=== PATIENT | female | born 1980 | race Caucasian/White ===

== ENCOUNTER 2017-11-11 11:52 | Inpatient (IN) | payer BC, OTHER ==
[2017-11-11] MEDS ORDERED: LORazepam INJ* 2 MG/ML 1 ML VIAL IV ONE (14:14)
[2017-11-11 14:35] LABS: ABS Basophils 0.1 10^3/ul (0-0.2); ABS Eosinophils 0.1 10^3/ul (0-0.6); ABS Lymphocytes 1.4 10^3/ul (1.0-4.8); ABS Monocytes 0.2 10^3/ul (0-0.8); ABS Neutrophils 2.2 10^3/ul (1.5-7.7); ABS Nucleated RBC 0 10^3/ul; Eosinophil % 3.4 % (0-6); Hematocrit 38 % (35-47); Hemoglobin 12.3 g/dl (12.0-16.0); Lymphocyte % 33.4 % (25-47); Mean Corpuscular HGB Conc 33 g/dl (31-36); Mean Corpuscular Hemoglobin 27 pg (27-31); Mean Corpuscular Volume 84 fL (80-97); Mean Platelet Volume 6 um3 (7.4-10.4); Nucleated Red Blood Cells % 0.2; Platelet Count 360 10^3/ul (150-450); Red Blood Count 4.51 10^6/ul (4.0-5.4); Red Cell Distribution Width 19 % (10.5-15)
[2017-11-11 14:59] LABS: EGFR Non-African American 100.2 (>60)
[2017-11-11 15:06] LABS: Urine Appearance Clear; Urine Blood Negative (Negative); Urine Color Colorless; Urine Ketones Negative (Negative); Urine Protein Negative (Negative); Urine Urobilinogen Negative (Negative)
[2017-11-11] MEDS ORDERED: Thiamine IV 100 MG, Folic Acid IV* 1 MG, Multiple Vitamin IV ADULT* 10 ML in D5NS 0.9% ... IV ONE (17:41)
[2017-11-11] MEDS ORDERED: Ondansetron INJ* 2 MG/ML VIAL IV PRN (17:41)
[2017-11-11] MEDS ORDERED: NS 0.9% 1000 ML* 1,000 ML IV SCH (18:00)
[2017-11-11] MEDS: LORazepam TAB(*) 1 MG PO SCH ×2 (21:06→23:29)
[2017-11-11] MEDS: Acetaminophen TAB* 325 MG PO PRN (21:06)
--- NOTE | 2017-11-11 23:44 | HP ---
CC: Dr. Bernard * HISTORY AND PHYSICAL: DATE OF ADMISSION: 11/11/17 PRIMARY CARE PROVIDER: Dr. Bernard. ATTENDING PHYSICIAN WHILE IN THE HOSPITAL: Dr. Bernadette Renner * (report dictated by Filippo Campbell NP). CHIEF COMPLAINT: Alcoholism. HISTORY OF PRESENT ILLNESS: Ms. Reveles is a 37-year-old female patient, who has a history of anxiety and alcohol abuse. She comes in today, says that for last year, she has been drinking on a daily basis. She has tried weaning herself off several times and she gets anxious when she does this. She starts having signs of withdrawal. She noticed that her heart rate becomes very fast, and she becomes anxious. She gets shakes. She gets sweating. She has tried several times to come off the alcohol, and she says that she has tried to do this on her own because she does not want to have to get into a program and essentially she says she does want to try to do it on her own. She now realized that she needs help and particularly to help manage the withdrawal. She denies ever having a seizure. She says she has not been having any vomiting or diarrhea. There have been no bloody stools or bloody vomiting. She denied any pain. Currently, she says she does feel palpitations. She feels anxious and she does state that she is having a mild tremor. Because of the early signs of withdrawal, we were asked to evaluate for admission. PAST MEDICAL HISTORY: Significant for: 1. Anxiety. 2. Alcoholism. PAST SURGICAL HISTORY: Denied. MEDICATIONS: Home medications include Zoloft 50 mg p.o. daily. ALLERGIES TO MEDICATIONS: Include no known drug allergies. FAMILY HISTORY: Mother had a history of AAA. Father of multiple myeloma. SOCIAL HISTORY: She does not smoke. She denies any other recreational drugs. She does admit to having drinking 5 to 10, either wine or mixed vodka drinks a day. Surrogate decision maker is her . REVIEW OF SYSTEMS: There is no documented fever. She denied having any significant weight change. There was no double vision. She denies having any ear discharge. There is no rhinorrhea. No sore throat. No thyroid enlargement. Denies having any chest pain. There is no orthopnea, nocturnal dyspnea. Denies having any abdominal pain. There is no nausea, no vomiting. No dysuria , no frequency. No seizure, no loss of consciousness. No pruritus, and no skin ulceration. Review of 14 systems completed, all others negative. PHYSICAL EXAMINATION GENERAL: At this time, Ms. Reveles is a 37-year-old female patient, she is sitting in the ED stretcher. She does not appear to be in any acute respiratory distress. VITAL SIGNS: Blood pressure 123/75, pulse 98, respirations 17, O2 sat 93%, temperature 98.1. When I evaluated her, her heart rate was right around 110. HEENT: Head: Atraumatic, normocephalic. Eyes: EOMs intact. Sclerae anicteric and not pale. Throat: Oral mucosa appears to be moist. No oropharyngeal erythema. NECK: Supple. LUNGS: Clear to auscultation bilaterally. No wheezes, rales, or rhonchi. HEART: Sounds S1 and S2. She is tachycardic. ABDOMEN: Soft, flat, nontender. Bowel sounds are present. EXTREMITIES: Pulses were 2+ throughout. She is moving all 4 extremities with 5 /5 strength. NEUROLOGIC: The patient is awake, alert, and oriented x3. Tongue midline. Internet Database Specialist equal. No gross focal deficits. SKIN: Grossly intact. DIAGNOSTIC STUDIES/LAB DATA: WBC of 4.0, RBC of 4.51, hemoglobin 12.3, hematocrit 38, platelet count 360. Sodium is 141, potassium 4.0, chloride 107, bicarb 28, BUN 4, creatinine 0.66, glucose 107, calcium 9.2. Total bili 0.3, AST 54, ALT 38, alk phos 64. Albumin of 4.6. TSH of 0.60. Urine was obtained , it was negative. Toxicology was negative with the exception alcohol was 399. She had an EKG obtained today as well, which revealed sinus tachycardia, rate of 114. No ST elevations or T-wave inversions were noted. Old medical records were reviewed. ASSESSMENT AND PLAN: Ms. Reveles is a 37-year-old female patient coming into the ED today with complaints of alcoholism with interest of quitting and showing no signs of withdrawal. She will be admitted under observation status for: 1. Ethanol abuse with early signs of withdrawal. At this point, I will go ahead and put her on the WAM protocol, we will put her on a taper as well, we will give her a banana bag. In addition to this, put on thiamine and multivitamin and folic acid. We will continue to follow her closely. We will hydrate her. I will also place Social Work consult as well as she will need outpatient management. 2. Anxiety. Continue her Zoloft and supportive care. 3. DVT prophylaxis. SCDs have been ordered. 4. Code status. Full code. 5. Fluids, electrolytes, and nutrition. She can have a regular diet. TIME SPENT: On the admission was 60 minutes, greater than half the time was spent [id number] with the patient obtaining my history and physical; other half the time was spent going over the plan of care with the patient and implementing plan of care. I did discuss the plan of care with my attending, Dr. Renner; she is in agreement. FILIPPO CAMPBELL, ADIEL [id number]/[facility] #: [id number] MAKENZIE
[2017-11-12] MEDS: LORazepam TAB(*) 1 MG PO SCH ×7 (01:18→23:30)
[2017-11-12 06:50] LABS: ABS Basophils 0.1 10^3/ul (0-0.2); ABS Eosinophils 0.2 10^3/ul (0-0.6); ABS Lymphocytes 1.1 10^3/ul (1.0-4.8); ABS Monocytes 0.3 10^3/ul (0-0.8); ABS Neutrophils 1.9 10^3/ul (1.5-7.7); ABS Nucleated RBC 0 10^3/ul; Eosinophil % 4.9 % (0-6); Hematocrit 36 % (35-47); Hemoglobin 11.7 g/dl (12.0-16.0); Lymphocyte % 32.1 % (25-47); Mean Corpuscular HGB Conc 33 g/dl (31-36); Mean Corpuscular Hemoglobin 28 pg (27-31); Mean Corpuscular Volume 84 fL (80-97); Mean Platelet Volume 7 um3 (7.4-10.4); Nucleated Red Blood Cells % 0.1; Platelet Count 273 10^3/ul (150-450); Red Blood Count 4.25 10^6/ul (4.0-5.4); Red Cell Distribution Width 18 % (10.5-15); White Blood Count 3.5 10^3/ul (3.5-10.8)
[2017-11-12 07:04] LABS: EGFR Non-African American 116.3 (>60)
[2017-11-12] MEDS ORDERED: Potassium Chlor TAB* 20 MEQ TAB.ER PO ONE (07:49)
--- NOTE | 2017-11-12 07:54 | PN ---
Subjective Date of Service: 11/12/17 Interval History: py feels tremulous, otherwise no complaints. Denies hallucinations, never had withdrawal seizures Objective Active Medications: Acetaminophen (Tylenol Tab*) 650 mg PO Q4H PRN PRN Reason: PAIN Last Admin: 11/11/17 21:06 Dose: 650 mg Folic Acid (Folvite Tab*) 1 mg PO DAILY [facility] Hydralazine HCl (Apresoline Iv*) 5 mg IV SLOW PU Q6H PRN PRN Reason: BLOOD PRESSURE Lorazepam (Ativan Tab(*)) 0 - 6 mg PO .PER [facility] PROTOCOL [facility] PRN Reason: Protocol Last Admin: 11/12/17 05:50 Dose: 2 mg Multivitamins/Minerals (Theragran/Minerals Tab*) 1 tab PO DAILY [facility] Ondansetron HCl (Zofran Inj*) 4 mg IV Q6H PRN PRN Reason: NAUSEA Potassium Chloride (Klor Con Er Tab*) 40 meq PO ONCE ONE Stop: 11/12/17 07:50 Sertraline HCl (Zoloft*) 50 mg PO DAILY [facility] Thiamine HCl (Vitamin B-1 Tab*) 100 mg PO DAILY [facility] Vital Signs - 8 hr 11/12/17 11/12/17 11/12/17 01:00 01:05 01:12 Temperature 97.9 F Pulse Rate 156 130 Respiratory 16 18 Rate Blood Pressure 157/99 (mmHg) O2 Sat by Pulse 100 Oximetry 11/12/17 11/12/17 11/12/17 01:18 03:00 03:37 Temperature 98.9 F Pulse Rate 116 Respiratory 18 18 18 Rate Blood Pressure 158/110 (mmHg) O2 Sat by Pulse 100 Oximetry 11/12/17 11/12/17 11/12/17 03:41 04:41 05:44 Temperature 98.2 F Pulse Rate 143 Respiratory 18 18 18 Rate Blood Pressure 180/113 (mmHg) O2 Sat by Pulse 100 Oximetry 11/12/17 11/12/17 11/12/17 05:50 06:31 07:25 Temperature 98.1 F Pulse Rate 108 Respiratory 14 16 18 Rate Blood Pressure 179/111 (mmHg) O2 Sat by Pulse 100 Oximetry 11/12/17 11/12/17 07:29 07:30 Temperature Pulse Rate 112 Respiratory 17 Rate Blood Pressure 172/102 (mmHg) O2 Sat by Pulse Oximetry Oxygen Devices in Use Now: None Appearance: 37 yo F in nAd, AAOx3 Eyes: No Scleral Icterus, PERRLA Ears/Nose/Mouth/Throat: NL Teeth, Lips, Gums, Mucous Membranes Moist Neck: NL Appearance and Movements; NL JVP, Trachea Midline Respiratory: Symmetrical Chest Expansion and Respiratory Effort, Clear to Auscultation Cardiovascular: NL Sounds; No Murmurs; No JVD, RRR Abdominal: NL Sounds; No Tenderness; No Distention, No Hepatosplenomegaly Lymphatic: No Cervical Adenopathy Extremities: No Edema, No Clubbing, Cyanosis Skin: No Rash or Ulcers, No Nodules or Sclerosis Neurological: Alert and Oriented x 3, NL Muscle Strength and Tone, - - mild UE tremors noted Result Diagrams: 11/12/17 06:25 11/12/17 06:26 Assess/Plan/Problems-Billing Assessment: 37 yo F with h/o anxiety , drinking ETOH excessively x 1 year presented for ETOH withdrawal - Patient Problems (1) Alcohol withdrawal Comment: Acute, now with tremors and HTN cont WAM, thamine and folate SW to see (2) HTN (hypertension) Comment: due to withdrawal started hydralazine (3) Depression Comment: cont Zoloft (4) DVT prophylaxis Comment: low risk , ambulation Status and Disposition: OBV changed to inpatient, still has symptoms of withdrawal
[2017-11-12] MEDS: Multivitamins/Minerals TAB PO SCH (08:23)
[2017-11-12] MEDS: hydrALAZINE IV* 20 MG/ML VIAL IV SLOW PU PRN ×2 (08:24→18:04)
[2017-11-12] MEDS: Sertraline* 50 MG TAB PO SCH (08:25)
[2017-11-12] MEDS: Thiamine TAB* 100 MG TAB PO SCH (08:25)
[2017-11-12] MEDS: Folic Acid TAB* 1 MG PO SCH (08:25)
[2017-11-13 06:17] LABS: EGFR Non-African American 95.2 (>60)
[2017-11-13] MEDS: Multivitamins/Minerals TAB PO SCH (09:24)
[2017-11-13] MEDS: Sertraline* 50 MG TAB PO SCH (09:24)
[2017-11-13] MEDS: Thiamine TAB* 100 MG TAB PO SCH (09:24)
[2017-11-13] MEDS: cloNIDine TAB* 0.1 MG PO SCH ×2 (09:24→21:34)
[2017-11-13] MEDS: Folic Acid TAB* 1 MG PO SCH (09:24)
--- NOTE | 2017-11-13 10:15 | PN ---
Subjective Date of Service: 11/13/17 Interval History: Pt is still tachycardic and hypertensive, but minimally "shaky", denies hallucinations. Objective Active Medications: Acetaminophen (Tylenol Tab*) 650 mg PO Q4H PRN PRN Reason: PAIN Last Admin: 11/11/17 21:06 Dose: 650 mg Clonidine HCl (Catapres Tab*) 0.1 mg PO BID [facility] Last Admin: 11/13/17 09:24 Dose: 0.1 mg Folic Acid (Folvite Tab*) 1 mg PO DAILY [facility] Last Admin: 11/13/17 09:24 Dose: 1 mg Hydralazine HCl (Apresoline Iv*) 5 mg IV SLOW PU Q6H PRN PRN Reason: BLOOD PRESSURE Last Admin: 11/12/17 18:04 Dose: 5 mg Lorazepam (Ativan Tab(*)) 0 - 6 mg PO .PER [facility] PROTOCOL [facility] PRN Reason: Protocol Last Admin: 11/12/17 23:30 Dose: 2 mg Multivitamins/Minerals (Theragran/Minerals Tab*) 1 tab PO DAILY [facility] Last Admin: 11/13/17 09:24 Dose: 1 tab Ondansetron HCl (Zofran Inj*) 4 mg IV Q6H PRN PRN Reason: NAUSEA Sertraline HCl (Zoloft*) 50 mg PO DAILY [facility] Last Admin: 11/13/17 09:24 Dose: 50 mg Thiamine HCl (Vitamin B-1 Tab*) 100 mg PO DAILY [facility] Last Admin: 11/13/17 09:24 Dose: 100 mg Vital Signs - 8 hr 11/13/17 11/13/17 11/13/17 03:19 05:06 06:04 Temperature 98.2 F Pulse Rate 118 109 Respiratory 16 16 20 Rate Blood Pressure 160/108 165/109 (mmHg) O2 Sat by Pulse 100 100 Oximetry 11/13/17 11/13/17 07:57 09:12 Temperature 98.6 F 98.5 F Pulse Rate 132 113 Respiratory 18 18 Rate Blood Pressure 160/97 158/109 (mmHg) O2 Sat by Pulse 99 100 Oximetry Oxygen Devices in Use Now: None Appearance: 37 yo f in nAD, AAOx3 Eyes: No Scleral Icterus, PERRLA Ears/Nose/Mouth/Throat: NL Teeth, Lips, Gums, Mucous Membranes Moist Neck: NL Appearance and Movements; NL JVP, Trachea Midline Respiratory: Symmetrical Chest Expansion and Respiratory Effort, Clear to Auscultation Cardiovascular: NL Sounds; No Murmurs; No JVD, RRR Abdominal: NL Sounds; No Tenderness; No Distention Lymphatic: No Cervical Adenopathy Extremities: No Edema, No Clubbing, Cyanosis Skin: No Rash or Ulcers, No Nodules or Sclerosis Neurological: Alert and Oriented x 3, - - minimal tremors in b/l UE Result Diagrams: 11/12/17 06:25 11/13/17 05:43 Assess/Plan/Problems-Billing Assessment: 37 yo F with h/o anxiety , drinking ETOH excessively x 1 year presented for ETOH withdrawal - Patient Problems (1) Alcohol withdrawal Comment: Acute, still with tremors and HTN cont WAM, thiamine and folate. Started Clonidine BID for HTN and tachycardia. Will also check Echo to r/o ETOH related cardiomyopathy SW following (2) HTN (hypertension) Comment: due to withdrawal started clonidine, cont hydralazine prn (3) Depression Comment: cont Zoloft (4) DVT prophylaxis Comment: low risk , ambulation Status and Disposition: inpatient
[2017-11-13] MEDS: Acetaminophen TAB* 325 MG PO PRN (15:21)
--- NOTE | 2017-11-13 15:52 | ECHO ---
Patient: ROBERT VALERO [facility] Rec#: [id number] : 1980 Date: 11/13/2017 Age: 37y Height: 170.18 cm / 67.0 in Weight: 73.48 kg / 161.9 lbs Sex: F BSA: 1.85 Room#: 407 Admit Date#: 11/12/2017 Type: Inpatient Referring: Trish Bradshaw MD Reading: Zachary Lala MD Plate Finisher: Cynthia Marie RD,RDMS Transthoracic Echocardiogram Indication: Abnormal EKG BP: 162/114 HR: 103 Rhythm: Tachycardia Findings History: ETOH Technical Comments: The study quality is good. Left Ventricle: The left ventricular chamber size is normal. The estimated ejection fraction is 55-60%. Normal left ventricular diastolic filling is observed. Left Atrium: The left atrial chamber size is normal. Right Ventricle: The right ventricular chamber size and systolic function are within normal limits. Right Atrium: The right atrial cavity size is normal. Aortic Valve: The aortic valve is trileaflet. Systolic excursion of the aortic valve is normal. There is no evidence of aortic regurgitation. There is no evidence of aortic stenosis. Mitral Valve: The mitral valve leaflets are mildly thickened. There is a trace of mitral regurgitation. There is no evidence of mitral stenosis. Tricuspid Valve: The tricuspid valve leaflets are normal. There is trace tricuspid regurgitation. No pulmonary hypertension is noted. Pulmonic Valve: The pulmonic valve structure is not well visualized. There is no evidence of pulmonic regurgitation. Pericardium: There is no significant pericardial effusion. Aorta: The aortic root appears normal. There is no dilatation of the aortic arch. Pulmonary Artery: The main pulmonary artery is not well visualized. Venous: The inferior vena cava appears normal in size. There is a greater than 50% respiratory change in the inferior vena cava dimension. Summary: There was not any prior study for comparison. Conclusions The estimated ejection fraction is 55-60%. There is a trace of mitral regurgitation. There is trace tricuspid regurgitation. Measurements Name Value Normal Range RVIDd (AP) 2D 2 cm (0.9 - 2.6) RVDdMajor (2D) 1.7 cm (2.2 - 4.4) RAd ISD 4CH 4.1 cm (3.4 - 4.9) RA (A4C)W 3.3 cm (2.9 - 4.6) IVSd (2D) 1.1 cm (0.6 - 1) LVPWd (2D) 1 cm (0.6 - 1) LVIDd (2D) 4.4 cm (3.6 - 5.4) LVIDs (2D) 2.8 cm - LV FS (2D) 36 % (25 - 45) Aortic Annulus 2 cm (1.4 - 2.6) Ao root diameter (2D) 2.8 cm (2.1 - 3.5) Ascending Ao 2.9 cm (2.1 - 3.4) Aortic arch 2.8 cm (1.8 - 3.4) LA dimension (AP) 2D 3.2 cm (2.3 - 3.8) LAd ISD 4CH 4.7 cm (2.9 - 5.3) LA ISD 4CH W 3.5 cm (2.5 - 4.5) Name Value Normal Range LA ESV SP 4CH (A/L) 41.06 ml - LA ESV SP 2CH (A/L) 40.39 ml - LA ESV BP (A/L) 41.45 ml - LA ESV BP (A/L) index 22 ml/m2 - LA ESV SP 4CH (MOD) 38.56 ml - LA ESV SP 2CH (MOD) 36.76 ml - Name Value Normal Range MV E-wave Vmax 0.5 m/sec - MV deceleration time 105 msec - MV A-wave Vmax 0.8 m/sec - MV E:A ratio 0.6 ratio - LV lateral e' Vmax 0.07 m/sec - LV E:e' lateral ratio 7 ratio - Name Value Normal Range AV Vmax 1.2 m/sec - AV VTI 20 cm - AV peak gradient 6 mmHg - AV mean gradient 3.4 mmHg - LVOT Vmax 1 m/sec - LVOT VTI 16 cm - LVOT peak gradient 4 mmHg - LVOT mean gradient 2.2 mmHg - OSBALDO Vmax 0.8 m/sec - Name Value Normal Range TR Vmax 1.8 m/sec - TR peak gradient 13 mmHg - RAP 3 mmHg - RVSP 16 mmHg - IVC diameter 2.1 cm - Name Value Normal Range PV Vmax 0.8 m/sec - PV peak gradient 2.6 mmHg -
[2017-11-13] MEDS: LORazepam TAB(*) 1 MG PO SCH (23:31)
[2017-11-14] MEDS: Folic Acid TAB* 1 MG PO SCH (08:19)
[2017-11-14] MEDS: Multivitamins/Minerals TAB PO SCH (08:19)
[2017-11-14] MEDS: Thiamine TAB* 100 MG TAB PO SCH (08:19)
[2017-11-14] MEDS: cloNIDine TAB* 0.1 MG PO SCH (08:19)
[2017-11-14] MEDS: Sertraline* 50 MG TAB PO SCH (08:19)
[2017-11-14 09:29] VITALS: BP 149/103
--- NOTE | 2017-11-14 22:15 | DS ---
CC: Dr. Bernard * DISCHARGE SUMMARY: DATE OF ADMISSION: 11/11/17 DATE OF DISCHARGE: 11/14/17 PRIMARY CARE PROVIDER: Dr. Bernard. DISCHARGE DIAGNOSES: 1. Alcohol withdrawal in patient with history of alcoholism. 2. Tachycardia and hypertension likely related to alcohol withdrawal. SECONDARY DIAGNOSES: 1. History of anxiety. 2. History of alcoholism. MEDICATIONS AT DISCHARGE: Include: 1. Multivitamin [id number] daily. 2. Sertraline 50 mg daily. 3. Clonidine 0.1 mg b.i.d. The patient was given 2-week supply. LABORATORY DATA AND STUDIES PERFORMED DURING THE HOSPITAL STAY: Included: On 11/12/17, white blood cell count of 3.5, hemoglobin 11.7, hematocrit of 36, and platelets of 273. On 11/13/17, sodium of 133, potassium 3.9, chloride 101, carbon dioxide 24, BUN 8, creatinine 0.69, magnesium 2. Serum alcohol level on admission was 399. Transthoracic echocardiogram obtained on 11/11/17 showed EF of 55% to 60% with trace mitral regurgitation and trace tricuspid regurgitation. HOSPITALIZATION COURSE: Halima Reveles is a 37-year-old female who stated that she was drinking alcohol excessively for over a year now. She stated that every time she tried to cut down or stopped drinking, she would get severe generalized tremors. She came into the hospital intoxicated and asked to be help with her withdrawal symptoms when she "comes clean." The patient was placed on the [facility] protocol with withdrawal. She was given intravenous hydration. Social work saw the patient in consultation. I recommended outpatient meetings for alcoholics anonymous. He did have a history of depression and anxiety. The patient also was referred to [facility]. By the time of discharge, the patient's withdrawal symptoms were nearly gone. She did not require Ativan doses anymore, although she continues to be tachycardic and hypertensive. Due to her tachycardia, an echocardiogram was obtained, which showed no evidence of cardiomyopathy. I suspect her tachycardia and hypertension is still related to mild withdrawal symptoms. Due to that, the patient was started on clonidine the day prior to discharge with good result and she is going to be discharged on clonidine to go home with. PHYSICAL EXAMINATION AT THE TIME OF DISCHARGE: Blood pressure of 139/88, heart rate of 109 and regular, respiratory rate 16, oxygen saturation 100% on room air , temperature 98.4. General: The patient is a very pleasant 37-year-old female who is in no acute distress. Alert, awake, and oriented x3. HEENT: Head: Atraumatic, normocephalic. Eyes: Pupils are equal, reactive to light and accommodation. Oropharynx clear. Mucosa moist. Neck: Supple. No JVD. No bruits bilaterally. Cardiovascular: Regular rate and rhythm. No murmur. Respiratory: Clear to auscultation bilaterally. Abdomen: Soft, nontender. Bowel sounds are present in all 4 quadrants. Extremities: There is no edema. Pulses +2 bilaterally. No clubbing or cyanosis. On neuro evaluation, speech clear. Cranial nerves II through XII grossly intact. Motor strength is 5/5 bilaterally. Please note that this is a short summary of the patient's hospitalization. Please refer to further medical records for details. TIME SPENT: Approximately 40 minutes was spent on the patient's discharge. [id number]/[facility] #: [id number] MTDD
--- NOTE | 2017-11-15 13:51 | ED ---
Regulo Gayle Gabriel, scribed for Massimo Heller MD on 11/11/17 at 1407 . Substance Abuse/Use - HPI Summary HPI Summary: This patient is a 37 year old F presenting to [facility] accompanied by her requesting EtOh detox. Pts last drink was at 0800 and she drinks 5-8 drinks a day at night. She states she has had a strong addiction for the last year has tried to taper off but has physical withdraws . Patient reports shaking and anxiety. Patient denies SI. - History Of Current Complaint Chief Complaint: EDDetoxRequest Stated Complaint: ALCOHOL DETOX Time Seen by Provider: 11/11/17 12:02 Hx Obtained From: Patient Ingestion History: Type/Name Of Drug - etoh Overdose Characteristics: Oral Timing Of Abuse: Daily Severity Initially: Moderate Severity Currently: Moderate Associated Signs And Symptoms: Tremulous, Other: - anxiety - Allergies/Home Medications Allergies/Adverse Reactions: Allergies Allergy/AdvReac Type Severity Reaction Status Date / Time No Known Allergies Allergy Verified 11/11/17 12:00 PMH/Surg Hx/FS Hx/Imm Hx Endocrine/Hematology History: Denies: Hx Blood Disorders, Hx Blood Transfusions, Hx Bone Marrow Disease Respiratory History: Denies: Hx Asthma, Hx Bronchopulmonary Dysplasia, Hx Chronic Bronchitis History: Denies: Hx Acute Renal Failure, Hx Benign Prostatic Hyperplasia EENT History: Denies: Hx Deafness Neurological History: Denies: Hx CVA Infectious Disease History: No Infectious Disease History: Denies: Traveled Outside the [place] in Last 30 Days - Family History Known Family History: Positive: Other - AAA killed her mother at 34 y/o Negative: Cardiac Disease, Hypertension, Diabetes, Renal Disease, Respiratory Disease, Seizure Disorder - Social History Occupation: Employed Part-time Lives: With Family Alcohol Use: Daily Substance Use Type: Reports: None Smoking Status (MU): Light Every Day Tobacco Smoker Review of Systems Positive: Other - shaking . Negative: Fever, Chills Negative: Erythema Negative: Sore Throat Negative: Chest Pain Negative: Shortness Of Breath, Cough Negative: Abdominal Pain, Vomiting, Nausea Negative: dysuria, hematuria Negative: Myalgia, Edema Negative: Rash Neurological: Negative - dizzines Positive: Anxious All Other Systems Reviewed And Are Negative: Yes Physical Exam - Summary Physical Exam Summary: Constitutional: Well-developed, Well-nourished, Alert. (-) Distressed, tremulous Skin: Warm, Dry HENT: Normocephalic; Atraumatic Eyes: Conjunctiva normal Neck: Musculoskeletal ROM normal neck. (-) JVD, (-) Stridor, (-) Tracheal deviation Cardio: Rhythm regular, rate normal, Heart sounds normal; Intact distal pulses; The pedal pulses are 2+ and symmetric. Radial pulses are 2+ and symmetric. (-) Murmur Pulmonary/Chest wall: Effort normal. (-) Respiratory distress, (-) Wheezes, (-) Rales Abd: Soft, (-) Tenderness, (-) Distension, (-) Guarding, (-) Rebound Musculoskeletal: (-) Edema Lymph: (-) Cervical adenopathy Neuro: Alert, Oriented x3 Psych: Mood and affect Normal Triage Information Reviewed: Yes Vital Signs On Initial Exam: Initial Vitals Temp Pulse Resp BP Pulse Ox 98.4 F 115 20 177/120 96 11/11/17 12:00 11/11/17 12:00 11/11/17 12:00 11/11/17 12:00 11/11/17 12:00 Vital Signs Reviewed: Yes Diagnostics - Vital Signs Vital Signs Temp Pulse Resp BP Pulse Ox 11/11/17 12:00 98.4 F 115 20 177/120 96 - Laboratory Lab Results: Lab Results 11/11/17 11/11/17 11/11/17 Range/Units 14:23 14:23 14:56 WBC 4.0 (3.5-10.8) 10^3/ul RBC 4.51 (4.0-5.4) 10^6/ul Hgb 12.3 (12.0-16.0) g/dl Hct 38 (35-47) % MCV 84 (80-97) fL MCH 27 (27-31) pg MCHC 33 (31-36) g/dl RDW 19 H (10.5-15) % Plt Count 360 (150-450) 10^3/ul MPV 6 L (7.4-10.4) um3 Neut % (Auto) 55.6 (38-83) % Lymph % (Auto) 33.4 (25-47) % [place] % (Auto) 5.8 (0-7) % Eos % (Auto) 3.4 (0-6) % Baso % (Auto) 1.8 (0-2) % Absolute Neuts (auto) 2.2 (1.5-7.7) 10^3/ul Absolute Lymphs (auto) 1.4 (1.0-4.8) 10^3/ul Absolute Monos (auto) 0.2 (0-0.8) 10^3/ul Absolute Eos (auto) 0.1 (0-0.6) 10^3/ul Absolute Basos (auto) 0.1 (0-0.2) 10^3/ul Absolute Nucleated RBC 0 10^3/ul Nucleated RBC % 0.2 Sodium 141 (133-145) mmol/L Potassium 4.0 (3.5-5.0) mmol/L Chloride 107 (101-111) mmol/L Carbon Dioxide 25 (22-32) mmol/L Anion Gap 9 (2-11) mmol/L BUN 4 L (6-24) mg/dL Creatinine 0.66 (0.51-0.95) mg/dL Est GFR ( Amer) 128.9 (>60) Est GFR (Non-Af Amer) 100.2 (>60) BUN/Creatinine Ratio 6.1 L (8-20) Glucose 107 H (70-100) mg/dL Calcium 9.2 (8.6-10.3) mg/dL Total Bilirubin 0.30 (0.2-1.0) mg/dL AST 64 H (13-39) U/L ALT 38 (7-52) U/L Alkaline Phosphatase 64 (34-104) U/L Total Protein 7.6 (6.4-8.9) g/dL Albumin 4.6 (3.2-5.2) g/dL Globulin 3.0 (2-4) g/dL Albumin/Globulin Ratio 1.5 (1-3) TSH 0.60 (0.34-5.60) mcIU/mL Urine Color Urine Appearance Urine pH (5-9) Ur Specific [place] (1.010-1.030) Urine Protein (Negative) Urine Ketones (Negative) Urine Blood (Negative) Urine Nitrate (Negative) Urine Bilirubin (Negative) Urine Urobilinogen (Negative) Ur Leukocyte Esterase (Negative) Urine Glucose (Negative) Salicylates < 2.50 (<30) mg/dL Urine Opiates Screen None detected (None Detect) Acetaminophen < 15 mcg/mL Ur Barbiturates Screen None detected (None Detect) Ur Phencyclidine Scrn None detected (None Detect) Ur Amphetamines Screen None detected (None Detect) U Benzodiazepines Scrn None detected (None Detect) Urine Cocaine Screen None detected (None Detect) U Cannabinoids Screen None detected (None Detect) Serum Alcohol 399 H (<10) mg/dL 11/11/17 11/12/17 11/12/17 Range/Units 14:56 06:25 06:26 WBC 3.5 (3.5-10.8) 10^3/ul RBC 4.25 (4.0-5.4) 10^6/ul Hgb 11.7 L (12.0-16.0) g/dl Hct 36 (35-47) % MCV 84 (80-97) fL MCH 28 (27-31) pg MCHC 33 (31-36) g/dl RDW 18 H (10.5-15) % Plt Count 273 (150-450) 10^3/ul MPV 7 L (7.4-10.4) um3 Neut % (Auto) 52.5 (38-83) % Lymph % (Auto) 32.1 (25-47) % [place] % (Auto) 8.7 H (0-7) % Eos % (Auto) 4.9 (0-6) % Baso % (Auto) 1.8 (0-2) % Absolute Neuts (auto) 1.9 (1.5-7.7) 10^3/ul Absolute Lymphs (auto) 1.1 (1.0-4.8) 10^3/ul Absolute Monos (auto) 0.3 (0-0.8) 10^3/ul Absolute Eos (auto) 0.2 (0-0.6) 10^3/ul Absolute Basos (auto) 0.1 (0-0.2) 10^3/ul Absolute Nucleated RBC 0 10^3/ul Nucleated RBC % 0.1 Sodium 135 (133-145) mmol/L Potassium 3.4 L (3.5-5.0) mmol/L Chloride 101 (101-111) mmol/L Carbon Dioxide 24 (22-32) mmol/L Anion Gap 10 (2-11) mmol/L BUN 4 L (6-24) mg/dL Creatinine 0.58 (0.51-0.95) mg/dL Est GFR ( Amer) 149.6 (>60) Est GFR (Non-Af Amer) 116.3 (>60) BUN/Creatinine Ratio 6.9 L (8-20) Glucose 76 (70-100) mg/dL Calcium 8.4 L (8.6-10.3) mg/dL Total Bilirubin (0.2-1.0) mg/dL AST (13-39) U/L ALT (7-52) U/L Alkaline Phosphatase (34-104) U/L Total Protein (6.4-8.9) g/dL Albumin (3.2-5.2) g/dL Globulin (2-4) g/dL Albumin/Globulin Ratio (1-3) TSH (0.34-5.60) mcIU/mL Urine Color Colorless Urine Appearance Clear Urine pH 7.0 (5-9) Ur Specific [place] 1.000 L (1.010-1.030) Urine Protein Negative (Negative) Urine Ketones Negative (Negative) Urine Blood Negative (Negative) Urine Nitrate Negative (Negative) Urine Bilirubin Negative (Negative) Urine Urobilinogen Negative (Negative) Ur Leukocyte Esterase Negative (Negative) Urine Glucose Negative (Negative) Salicylates (<30) mg/dL Urine Opiates Screen (None Detect) Acetaminophen mcg/mL Ur Barbiturates Screen (None Detect) Ur Phencyclidine Scrn (None Detect) Ur Amphetamines Screen (None Detect) U Benzodiazepines Scrn (None Detect) Urine Cocaine Screen (None Detect) U Cannabinoids Screen (None Detect) Serum Alcohol 43 H (<10) mg/dL Result Diagrams: 11/12/17 06:25 11/13/17 05:43 Lab Statement: Any lab studies that have been ordered have been reviewed, and results considered in the medical decision making process. - EKG 15:04 Cardiac Rate: Tachycardia EKG Rhythm: Sinus Tachycardia - at 114 BPM EKG Interpretation: No STEMI Course/Dx - Course Assessment/Plan: This patient is a 37 year old F presenting to [facility] accompanied by her requesting EtOh detox. Pts last drink was at 0800 and she drinks 5-8 drinks a day at night. She states she has had a strong addiction for the last year has tried to taper off but has physical withdraws . Patient reports shaking and anxiety. Patient denies SI. An EKG reveals sinus tachycardia. Test results with no significant abnormalities except for a serum alcohol of 399. In the ED course the patient was given ativan. We discussed patient care with Dr. Renner and they accepted the patient for admission. Patient will be admitted for alcohol withdrawal and alcohol dependence. The patient is agreeable with this plan. - Diagnoses Provider Diagnoses: Alcohol dependence with withdrawal - Physician Notifications Discussed Care Of Patient With: Bernadette Renner Time Discussed With Above Provider: 15:38 Instructed by Provider To: Admit As Inpatient Discharge - Sign-Out/Discharge Documenting (check all that apply): Discharge - admit - Discharge Plan Condition: Good Disposition: ADMITTED TO [facility] - Billing Disposition and Condition Condition: GOOD Disposition: [facility] [place] The documentation as recorded by the Regulo paiz Gabriel accurately reflects the service I personally performed and the decisions made by , Massimo Heller MD.
== END 2017-11-14 12:45 | disposition home or self-care (01) | DRG 775 ==
LOC: ED 11:52 → MED 17:35 → OBSVTOIN 11-12 07:54
PROVIDERS: ADMIT Internal Medicine; ATTEND Internal Medicine
DX: F10.239 Alcohol dependence with withdrawal, unspecified (principal); F10.229 Alcohol dependence with intoxication, unspecified; F41.9 Anxiety disorder, unspecified; F17.200 Nicotine dependence, unspecified, uncomplicated; I10 Essential (primary) hypertension; R00.0 Tachycardia, unspecified; F32.9 Major depressive disorder, single episode, unspecified; Y90.8 Blood alcohol level of 240 mg/100 ml or more; Z80.7 Family history of other malignant neoplasms of lymphoid, hematopoietic and related tissues; Z82.49 Family history of ischemic heart disease and other diseases of the circulatory system
CPT/HCPCS: 36415; 80048; 80053; 80307; 80320; 80329; 81003; 83735; 84443; 85025; 93005; 93306; 99283; 99406; A9270-GY; G0378; G0480; J0360; J2060; J3411

== ENCOUNTER 2017-12-06 17:48 | Emergency (ER) | payer BC ==
[2017-12-06 17:58] VITALS: BP 151/95
--- NOTE | 2017-12-06 18:34 | UC ---
Billy Gayle Nikita, scribed for Segundo Verdugo MD on 12/06/17 at 1815 . Complaint Female HPI - HPI Summary HPI Summary: This patient is a 37 year old F presenting to [facility] with a chief complaint of UTI symptoms since 1630 yesterday. The patient rates the pain 3/10 in severity. Symptoms aggravated by nothing. Symptoms alleviated by nothing. Patient reports urinary frequency, urgency, and dysuria. The patient reports she has been drinking 2L of water since onset of sx and that her sx are similar to a previous UTI. - History Of Current Complaint Chief Complaint: UCGU Stated Complaint: FREQUENCY/ BURINING W/ URINATION Time Seen by Provider: 12/06/17 18:04 Hx Obtained From: Patient Hx Last Menstrual Period: now Onset/Duration: Sudden Onset, Lasting Days, Still Present Timing: Constant, Lasting Days Severity Initially: Mild Severity Currently: Mild Pain Intensity: 3 Pain Scale Used: 0-10 Numeric Aggravating Factor(s): Nothing Alleviating Factor(s): Nothing - Allergies/Home Medications Allergies/Adverse Reactions: Allergies Allergy/AdvReac Type Severity Reaction Status Date / Time No Known Allergies Allergy Verified 12/06/17 17:59 PMH/Surg Hx/FS Hx/Imm Hx Endocrine History: Other Other Endocrine History: No DM Cardiovascular History: Other Other Cardiovascular History: No CAD, HTN Respiratory History: Other Other Respiratory History: No asthma GI/ History: Other Other GI/ History: cervical dysplasia cryotherapy Psychological History: Anxiety - Surgical History Surgical History: None - Family History Known Family History: Positive: Other - AAA killed her mother at 34 y/o Negative: Cardiac Disease, Hypertension, Diabetes, Renal Disease, Respiratory Disease, Seizure Disorder - Social History Alcohol Use: None Alcohol Amount: 5-7 drinks per day Substance Use Type: Prescribed Substance Use Comment - Amount & Last Used: 11/11/17 @ 1000 Smoking Status (MU): Former Smoker Type: Cigarettes Have You Smoked in the Last Year: Yes - Immunization History Most Recent Influenza Vaccination: never Most Recent Pneumonia Vaccination: never Review of Systems Constitutional: Other - denies fever Genitourinary: Dysuria, Frequency, Urgency All Other Systems Reviewed And Are Negative: Yes Physical Exam - Summary Physical Exam Summary: VITAL SIGNS: Reviewed. GENERAL: ~Patient is a well-developed and nourished FEMALE who is lying comfortable in the stretcher. ~Patient is not in any acute respiratory distress. HEAD AND FACE: Normocephalic EYES: PERRLA, EOMI x 2. EARS: Hearing grossly intact. MOUTH: Oropharynx within normal limits. NECK: Supple, trachea is midline, no adenopathy, no JVD, no carotid bruit. CHEST: Symmetric, no tenderness at palpation LUNGS: Clear to auscultation bilaterally. No wheezing or crackles. CVS: Regular rate and rhythm, S1 and S2 present, no murmurs or gallops appreciated. ABDOMEN: Soft, non-tender. Bowel sounds are normal. No abdominal abnormal pulsations. EXTREMITIES: Full ROM in all major joints, no edema, no cyanosis or clubbing. NEURO: Alert and oriented x 3. No acute neurological deficits. Speech is normal and follows commands. SKIN: Dry and warm Triage Information Reviewed: Yes Vital Signs: Initial Vital Signs Temp 97.5 F 12/06/17 17:55 Pulse 89 12/06/17 17:55 Resp 12 12/06/17 17:55 BP 151/95 12/06/17 17:55 Pulse Ox 100 12/06/17 17:55 Vital Signs Reviewed: Yes Re-Evaluation - Re-Evaluation First Eval Re-Evaluation Time: 18:19 Comment: Discussed lab results and discharge plan with the patient. Complaint Female Dx - Course Course Of Treatment: UA positive for leukocytes in the urine. Therefore she will be treated for a UTI and be placed on Bactrim. We will send the urine for culture. She is instructed to follow up with her PCP. The pt is hemodynamically stable, alert and oriented x3. The patient was found to have increased BP in UC. The patient will follow up with PCP for better control of BP. I discussed all the findings and test results with the patient. Patient was instructed to return to the urgent care or go to ER immediately if any of the symptoms return or worsens. Plan of care was discussed with the patient, and patient understands and agrees. All questions were answered to patient satisfaction. There were no further complaints or concerns. - Differential Dx/Diagnosis Differential Diagnosis/HQI/PQRI: Urinary Tract Infection Provider Diagnoses: Urinary Tract Infection Discharge - Sign-Out/Discharge Documenting (check all that apply): Discharge - Discharge Plan Condition: Stable Disposition: HOME Prescriptions: Sulfamethox/Trimethoprim DS* [Bactrim DS 800/160 TAB*] 1 tab PO BID #14 tab Patient Education Materials: Urinary Tract Infection in Women (ED) Referrals: Naina Bernard MD [Primary Care Provider] - Additional Instructions: FOLLOW UP WITH YOUR PRIMARY CARE PROVIDER WITHIN ONE WEEK FOR HIGH BLOOD PRESSURE NOTED TODAY. RETURN TO URGENT CARE FOR ANY WORSENING OR NEW SYMPTOMS. Take medications as instructed Increase your fluid intake Return to the UC if symptoms worsen - Billing Disposition and Condition Condition: STABLE Disposition: HOME The documentation as recorded by the Billy paiz Nikita accurately reflects the service I personally performed and the decisions made by , Segundo Verdugo MD.
== END 2017-12-06 18:20 | disposition home or self-care (01) ==
LOC: UCEAST 17:48
DX: N39.0 Urinary tract infection, site not specified (principal); Z87.440 Personal history of urinary (tract) infections; N87.9 Dysplasia of cervix uteri, unspecified; F41.9 Anxiety disorder, unspecified; Z87.891 Personal history of nicotine dependence
CPT/HCPCS: 81003; 87086; 99212; G0463

== ENCOUNTER 2018-01-09 17:30 | Inpatient (IN) | payer BC ==
[2018-01-09] MEDS ORDERED: LORazepam TAB(*) 1 MG PO ONE (19:44)
[2018-01-09 19:58] LABS: ABS Basophils 0 10^3/ul (0-0.2); ABS Eosinophils 0 10^3/ul (0-0.6); ABS Lymphocytes 1.4 10^3/ul (1.0-4.8); ABS Monocytes 0.8 10^3/ul (0-0.8); ABS Neutrophils 11.4 10^3/ul (1.5-7.7); ABS Nucleated RBC 0 10^3/ul; Eosinophil % 0.3 % (0-6); Hematocrit 40 % (35-47); Mean Corpuscular HGB Conc 33 g/dl (31-36); Mean Corpuscular Hemoglobin 27 pg (27-31); Mean Corpuscular Volume 82 fL (80-97); Mean Platelet Volume 6.4 um3 (7.4-10.4); Nucleated Red Blood Cells % 0; Platelet Count 412 10^3/ul (150-450); Red Blood Count 4.86 10^6/ul (4.0-5.4); Red Cell Distribution Width 19 % (10.5-15); White Blood Count 13.6 10^3/ul (3.5-10.8)
[2018-01-09 20:02] LABS: Urine Appearance Cloudy; Urine Blood 1+ (Negative); Urine Color Yellow; Urine Ketones Negative (Negative); Urine Protein Negative (Negative); Urine Specific Gravity 1.005 (1.010-1.030); Urine Urobilinogen Negative (Negative)
[2018-01-09 20:03] LABS: EGFR Non-African American 103.9 (>60)
[2018-01-09] MEDS ORDERED: chlordiazePOXIDE CAP* 25 MG PO ONE (22:47)
[2018-01-10] MEDS ORDERED: Thiamine IV* 100 MG/ML 2 ML VIAL IM ONE (02:25)
[2018-01-10] MEDS ORDERED: Albuterol 2.5 MG/3 ML NEB.SOL* (0.083%) INH PRN (02:31)
[2018-01-10] MEDS ORDERED: CMCS: Melatonin (NF) 3 MG TAB PO PRN (02:31)
[2018-01-10] MEDS ORDERED: Ondansetron ODT TAB* 4 MG PO PRN (02:32)
--- NOTE | 2018-01-10 02:43 | ED ---
Anne Gayle Emily, scribed for Ke Sabillon MD on 01/09/18 at 1944 . Substance Abuse/Use - HPI Summary HPI Summary: This patient is a 37 year old F BIBA to [facility] with a chief complaint of ETOH with drawl with desire for detox since today. The patient rates the pain 0/10 in severity. Symptoms aggravated by nothing. Symptoms alleviated by nothing. Patient reports anxiety, shakiness, and elevated heart rate. Pt reports drinking 5-7 drinks per day for the past year. Pt reports last drink at 0800 yesterday. - History Of Current Complaint Chief Complaint: EDDetoxRequest Stated Complaint: ALCOHOL WITHDRAW Time Seen by Provider: 01/09/18 19:37 Hx Obtained From: Patient Hx Last Menstrual Period: now ?: No Onset/Duration of Drug/ETOH Abuse: Years Overdose Characteristics: Oral Timing Of Abuse: Daily Severity Initially: Mild Severity Currently: Mild Character: Anxious Aggravating Factor(s): Nothing Alleviating Factor(s): Nothing Associated Signs And Symptoms: Other: - Positive anxiety, shakiness, and elevated heart rate - Allergies/Home Medications Allergies/Adverse Reactions: Allergies Allergy/AdvReac Type Severity Reaction Status Date / Time No Known Allergies Allergy Verified 12/06/17 17:59 PMH/Surg Hx/FS Hx/Imm Hx Previously Healthy: No Endocrine/Hematology History: Denies: Hx Blood Disorders, Hx Blood Transfusions, Hx Bone Marrow Disease Respiratory History: Denies: Hx Asthma, Hx Bronchopulmonary Dysplasia, Hx Chronic Bronchitis History: Denies: Hx Acute Renal Failure, Hx Benign Prostatic Hyperplasia Sensory History: Denies: Hx Contacts or Glasses, Hx Deafness, Hx Hearing Aid Opthamlomology History: Denies: Hx Contacts or Glasses Neurological History: Denies: Hx CVA Psychiatric History: Reports: Hx Anxiety Infectious Disease History: No Infectious Disease History: Denies: Traveled Outside the [place] in Last 30 Days - Family History Known Family History: Positive: Other - AAA killed her mother at 34 y/o Negative: Cardiac Disease, Hypertension, Diabetes, Renal Disease, Respiratory Disease, Seizure Disorder - Social History Occupation: Employed Full-time Lives: With Family Alcohol Use: None Alcohol Amount: 5-7 drinks per day Hx Substance Use: No Substance Use Type: Reports: Other Substance Use Comment - Amount & Last Used: 11/11/17 @ 1000 Hx Tobacco Use: Yes Smoking Status (MU): Former Smoker Type: Cigarettes Have You Smoked in the Last Year: Yes Review of Systems Positive: Other - Positive elevated heart rate Neurological: Other - Positive shakiness Positive: Anxious All Other Systems Reviewed And Are Negative: Yes Physical Exam - Summary Physical Exam Summary: Appearance: Well-appearing, Well-nourished, lying in bed comfortably Skin: Warm, dry, no obvious rash Eyes: sclera anicteric, no conjunctiva pallor ENT: mucous membranes moist, pharynx appears normal Neck: Supple, nontender Respiratory: Clear to auscultation, no signs of respiratory distress Cardiovascular: S1, S2. No murmurs. Normal distal pulses in tibial and radial bilaterally. Tachycardia Abdomen: Soft, nontender, normal active bowel sounds present Musculoskeletal: Normal, Strength/ROM Intact Neurological: A&Ox3, awake and alert, mentation is normal, speech is fluent and appropriate, a little tremor Psychiatric: affect is normal, does not appear anxious or depressed Triage Information Reviewed: Yes Vital Signs On Initial Exam: Initial Vitals Temp Pulse Resp BP Pulse Ox 99.8 F 82 20 148/95 98 01/09/18 17:36 01/09/18 17:36 01/09/18 17:36 01/09/18 17:36 01/09/18 17:36 Vital Signs Reviewed: Yes Diagnostics - Vital Signs Vital Signs Temp Pulse Resp BP Pulse Ox 01/09/18 18:52 164/100 01/09/18 18:22 120 144/104 98 01/09/18 18:00 128 94 01/09/18 17:52 114 158/105 93 01/09/18 17:51 121 96 01/09/18 17:36 99.8 F 82 20 148/95 98 - Laboratory Lab Results: Lab Results 01/09/18 01/09/18 01/09/18 Range/Units 19:37 19:37 19:40 WBC 13.6 H (3.5-10.8) 10^3/ul RBC 4.86 (4.0-5.4) 10^6/ul Hgb 13.0 (12.0-16.0) g/dl Hct 40 (35-47) % MCV 82 (80-97) fL MCH 27 (27-31) pg MCHC 33 (31-36) g/dl RDW 19 H (10.5-15) % Plt Count 412 (150-450) 10^3/ul MPV 6.4 L (7.4-10.4) um3 Neut % (Auto) 83.5 H (38-83) % Lymph % (Auto) 10.0 L (25-47) % [place] % (Auto) 6.0 (0-7) % Eos % (Auto) 0.3 (0-6) % Baso % (Auto) 0.2 (0-2) % Absolute Neuts (auto) 11.4 H (1.5-7.7) 10^3/ul Absolute Lymphs (auto) 1.4 (1.0-4.8) 10^3/ul Absolute Monos (auto) 0.8 (0-0.8) 10^3/ul Absolute Eos (auto) 0 (0-0.6) 10^3/ul Absolute Basos (auto) 0 (0-0.2) 10^3/ul Absolute Nucleated RBC 0 10^3/ul Nucleated RBC % 0 Sodium 142 (139-145) mmol/L Potassium 3.7 (3.5-5.0) mmol/L Chloride 99 L (101-111) mmol/L Carbon Dioxide 31 (22-32) mmol/L Anion Gap 12 H (2-11) mmol/L BUN 4 L (6-24) mg/dL Creatinine 0.64 (0.51-0.95) mg/dL Est GFR ( Amer) 133.6 (>60) Est GFR (Non-Af Amer) 103.9 (>60) BUN/Creatinine Ratio 6.3 L (8-20) Glucose 139 H (70-100) mg/dL Calcium 9.1 (8.6-10.3) mg/dL Total Bilirubin 0.30 (0.2-1.0) mg/dL AST 44 H (13-39) U/L ALT 36 (7-52) U/L Alkaline Phosphatase 86 (34-104) U/L Total Protein 8.0 (6.4-8.9) g/dL Albumin 4.8 (3.2-5.2) g/dL Globulin 3.2 (2-4) g/dL Albumin/Globulin Ratio 1.5 (1-3) TSH 0.99 (0.34-5.60) mcIU/mL Urine Color Urine Appearance Urine pH (5-9) Ur Specific [place] (1.010-1.030) Urine Protein (Negative) Urine Ketones (Negative) Urine Blood (Negative) Urine Nitrate (Negative) Urine Bilirubin (Negative) Urine Urobilinogen (Negative) Ur Leukocyte Esterase (Negative) Urine WBC (Auto) (Absent) Urine RBC (Auto) (Absent) Ur Squamous Epith Cells (Absent) Urine Bacteria (Absent) Urine Glucose (Negative) Salicylates < 2.50 (<30) mg/dL Urine Opiates Screen None detected (None Detect) Acetaminophen < 15 mcg/mL Ur Barbiturates Screen None detected (None Detect) Ur Phencyclidine Scrn None detected (None Detect) Ur Amphetamines Screen None detected (None Detect) U Benzodiazepines Scrn None detected (None Detect) Urine Cocaine Screen None detected (None Detect) U Cannabinoids Screen None detected (None Detect) Serum Alcohol 361 H (<10) mg/dL 01/09/18 Range/Units 19:42 WBC (3.5-10.8) 10^3/ul RBC (4.0-5.4) 10^6/ul Hgb (12.0-16.0) g/dl Hct (35-47) % MCV (80-97) fL MCH (27-31) pg MCHC (31-36) g/dl RDW (10.5-15) % Plt Count (150-450) 10^3/ul MPV (7.4-10.4) um3 Neut % (Auto) (38-83) % Lymph % (Auto) (25-47) % [place] % (Auto) (0-7) % Eos % (Auto) (0-6) % Baso % (Auto) (0-2) % Absolute Neuts (auto) (1.5-7.7) 10^3/ul Absolute Lymphs (auto) (1.0-4.8) 10^3/ul Absolute Monos (auto) (0-0.8) 10^3/ul Absolute Eos (auto) (0-0.6) 10^3/ul Absolute Basos (auto) (0-0.2) 10^3/ul Absolute Nucleated RBC 10^3/ul Nucleated RBC % Sodium (139-145) mmol/L Potassium (3.5-5.0) mmol/L Chloride (101-111) mmol/L Carbon Dioxide (22-32) mmol/L Anion Gap (2-11) mmol/L BUN (6-24) mg/dL Creatinine (0.51-0.95) mg/dL Est GFR ( Amer) (>60) Est GFR (Non-Af Amer) (>60) BUN/Creatinine Ratio (8-20) Glucose (70-100) mg/dL Calcium (8.6-10.3) mg/dL Total Bilirubin (0.2-1.0) mg/dL AST (13-39) U/L ALT (7-52) U/L Alkaline Phosphatase (34-104) U/L Total Protein (6.4-8.9) g/dL Albumin (3.2-5.2) g/dL Globulin (2-4) g/dL Albumin/Globulin Ratio (1-3) TSH (0.34-5.60) mcIU/mL Urine Color Yellow Urine Appearance Cloudy Urine pH 6.0 (5-9) Ur Specific [place] 1.005 L (1.010-1.030) Urine Protein Negative (Negative) Urine Ketones Negative (Negative) Urine Blood 1+ A (Negative) Urine Nitrate Positive A (Negative) Urine Bilirubin Negative (Negative) Urine Urobilinogen Negative (Negative) Ur Leukocyte Esterase 2+ A (Negative) Urine WBC (Auto) 2+(11-20/hpf) A (Absent) Urine RBC (Auto) 1+(3-5/hpf) A (Absent) Ur Squamous Epith Cells Present A (Absent) Urine Bacteria 1+ A (Absent) Urine Glucose 3+(>=500 mg/dl) A (Negative) Salicylates (<30) mg/dL Urine Opiates Screen (None Detect) Acetaminophen mcg/mL Ur Barbiturates Screen (None Detect) Ur Phencyclidine Scrn (None Detect) Ur Amphetamines Screen (None Detect) U Benzodiazepines Scrn (None Detect) Urine Cocaine Screen (None Detect) U Cannabinoids Screen (None Detect) Serum Alcohol (<10) mg/dL Result Diagrams: 01/09/18 19:37 01/09/18 19:37 Lab Statement: Any lab studies that have been ordered have been reviewed, and results considered in the medical decision making process. Re-Evaluation - Re-Evaluation First Eval Re-Evaluation Time: 22:45 Change: Unchanged Comment: Pt is still anxious, jittery, and quite tachycardic. Urinalysis thats abnormal. She says that she had a UTI 10 days ago, and symptoms cleared up and have not reoccurred. Send for cultures, and only treat if culture is positive. Course/Dx - Diagnoses Provider Diagnoses: Alcohol intoxication delirium with moderate or severe use disorder - Physician Notifications Discussed Care Of Patient With: Subhash Stephen Time Discussed With Above Provider: 01:30 Instructed by Provider To: Other - Consult with Dr. Stephen (hospitalist) at 0130. He agrees to admit pt for further evaluation. Discharge - Sign-Out/Discharge Documenting (check all that apply): Discharge/Admit/Transfer - Discharge Plan Condition: Guarded Disposition: ADMITTED TO [facility] Referrals: Naina Bernard MD [Primary Care Provider] - - Billing Disposition and Condition Condition: GUARDED Disposition: [facility] [place] The documentation as recorded by the Anne paiz Emily accurately reflects the service I personally performed and the decisions made by me, Ke Sabillon MD.
[2018-01-10] MEDS ORDERED: NS 0.9% 1000 ML* 2,000 ML IV ONE (02:45)
[2018-01-10] MEDS: LORazepam INJ* 2 MG/ML 1 ML VIAL IV PUSH SCH ×6 (03:29→18:30)
[2018-01-10] MEDS: Acetaminophen TAB* 325 MG PO PRN ×2 (03:29→16:34)
[2018-01-10] MEDS: NS 0.9% 1000 ML* 1,000 ML IV SCH ×2 (05:42→14:35)
[2018-01-10] MEDS: Omeprazole CAP* 20 MG PO SCH (05:42)
--- NOTE | 2018-01-10 06:09 | HP ---
H&P (Free Text) History and Physical: PCP: Megan Bernard MD Date/Time: 01/10/2018 0225 CC: alcohol withdrawal HPI: Mrs Reveles is a 37YO unreliable historian presenting reporting s/s of alcohol withdrawal consisting of 'jitteriness', palpitations, & anxiety. She states she typically drinks 1 bottle of wine daily and her last drink was around 1000am. She remained adamant with these answers despite being confronted with her blood alcohol level of 361 at 1930 tonight. She will be admitted for acute detox. Risks of ongoing excessive drinking including intractable delirium, liver failure, & were emphasized. Of note she was admitted under similar circumstanced to [facility] ~6 weeks ago. At that time she admitted to drinking 5-10 alcoholic drinks daily. PMedHx alcoholism anxiety Ambulatory Orders Sertraline* [Zoloft*] 50 mg PO DAILY #30 tab 11/14/17 Allergies No Known Allergies Allergy (Verified 12/06/17 17:59) PSurgHx denies SocHx: denies tobacco & recreational drugs, unreliable regarding alcohol consumption; lives with her ; full code status FamHx: Mother: AAA; Father: passed of multiple myeloma ROS: as above, otherwise reviewed and all were negative vitals: Vital Signs Temp 37.9 C 01/10/18 05:10 Pulse 111 01/10/18 05:10 Resp 16 01/10/18 05:10 BP 151/95 01/10/18 05:10 Pulse Ox 99 01/10/18 05:10 Intake & Output 01/09/18 01/09/18 01/10/18 11:59 23:59 11:59 Intake Total 440 Output Total 0 Balance 440 Weight 71.412 kg Intake: Oral 440 Output: Urine 0 Other: # Bowel Movements 0 # Voids 0 Constitutional: NAD, normally developed, overweight white female HEENM: atraumatic; sclera/conjunctiva: anicteric/clear; hearing: clinically intact; oropharynx: clear, mucosa tacky Neck: soft tissue: non-tender; thyroid: normal Pulmonary: clear to auscultation bilaterally, good aeration, no accessory muscle use CV: TR/RR, normal S1S2, no carotid bruit, no jugular venous distention, 2+ B DP/ PT, no edema Abdominal: soft, non-distended, non-tender, no rebound/guarding/rigidity, normoactive bowel sounds, no hepatosplenomegaly or masses, no costovertebral angle tenderness Musculoskeletal: general: grossly intact; gait: stable Integumental: normal appearance and texture of exposed skin Psychiatric orientation: AA&O to PPS affect: calm mood: cooperative eye contact: fair content: unreliable responses: timely insight: poor Testing: Lab Results 01/09/18 01/09/18 01/09/18 Range/Units 19:37 19:37 19:40 WBC 13.6 H (3.5-10.8) 10^3/ul RBC 4.86 (4.0-5.4) 10^6/ul Hgb 13.0 (12.0-16.0) g/dl Hct 40 (35-47) % MCV 82 (80-97) fL MCH 27 (27-31) pg MCHC 33 (31-36) g/dl RDW 19 H (10.5-15) % Plt Count 412 (150-450) 10^3/ul MPV 6.4 L (7.4-10.4) um3 Neut % (Auto) 83.5 H (38-83) % Lymph % (Auto) 10.0 L (25-47) % [place] % (Auto) 6.0 (0-7) % Eos % (Auto) 0.3 (0-6) % Baso % (Auto) 0.2 (0-2) % Absolute Neuts (auto) 11.4 H (1.5-7.7) 10^3/ul Absolute Lymphs (auto) 1.4 (1.0-4.8) 10^3/ul Absolute Monos (auto) 0.8 (0-0.8) 10^3/ul Absolute Eos (auto) 0 (0-0.6) 10^3/ul Absolute Basos (auto) 0 (0-0.2) 10^3/ul Absolute Nucleated RBC 0 10^3/ul Nucleated RBC % 0 Sodium 142 (139-145) mmol/L Potassium 3.7 (3.5-5.0) mmol/L Chloride 99 L (101-111) mmol/L Carbon Dioxide 31 (22-32) mmol/L Anion Gap 12 H (2-11) mmol/L BUN 4 L (6-24) mg/dL Creatinine 0.64 (0.51-0.95) mg/dL Est GFR ( Amer) 133.6 (>60) Est GFR (Non-Af Amer) 103.9 (>60) BUN/Creatinine Ratio 6.3 L (8-20) Glucose 139 H (70-100) mg/dL Calcium 9.1 (8.6-10.3) mg/dL Total Bilirubin 0.30 (0.2-1.0) mg/dL AST 44 H (13-39) U/L ALT 36 (7-52) U/L Alkaline Phosphatase 86 (34-104) U/L Total Protein 8.0 (6.4-8.9) g/dL Albumin 4.8 (3.2-5.2) g/dL Globulin 3.2 (2-4) g/dL Albumin/Globulin Ratio 1.5 (1-3) TSH 0.99 (0.34-5.60) mcIU/mL Urine Color Urine Appearance Urine pH (5-9) Ur Specific [employer] (1.010-1.030) Urine Protein (Negative) Urine Ketones (Negative) Urine Blood (Negative) Urine Nitrate (Negative) Urine Bilirubin (Negative) Urine Urobilinogen (Negative) Ur Leukocyte Esterase (Negative) Urine WBC (Auto) (Absent) Urine RBC (Auto) (Absent) Ur Squamous Epith Cells (Absent) Urine Bacteria (Absent) Urine Glucose (Negative) Salicylates < 2.50 (<30) mg/dL Urine Opiates Screen None detected (None Detect) Acetaminophen < 15 mcg/mL Ur Barbiturates Screen None detected (None Detect) Ur Phencyclidine Scrn None detected (None Detect) Ur Amphetamines Screen None detected (None Detect) U Benzodiazepines Scrn None detected (None Detect) Urine Cocaine Screen None detected (None Detect) U Cannabinoids Screen None detected (None Detect) Serum Alcohol 361 H (<10) mg/dL 01/09/18 Range/Units 19:42 WBC (3.5-10.8) 10^3/ul RBC (4.0-5.4) 10^6/ul Hgb (12.0-16.0) g/dl Hct (35-47) % MCV (80-97) fL MCH (27-31) pg MCHC (31-36) g/dl RDW (10.5-15) % Plt Count (150-450) 10^3/ul MPV (7.4-10.4) um3 Neut % (Auto) (38-83) % Lymph % (Auto) (25-47) % [place] % (Auto) (0-7) % Eos % (Auto) (0-6) % Baso % (Auto) (0-2) % Absolute Neuts (auto) (1.5-7.7) 10^3/ul Absolute Lymphs (auto) (1.0-4.8) 10^3/ul Absolute Monos (auto) (0-0.8) 10^3/ul Absolute Eos (auto) (0-0.6) 10^3/ul Absolute Basos (auto) (0-0.2) 10^3/ul Absolute Nucleated RBC 10^3/ul Nucleated RBC % Sodium (139-145) mmol/L Potassium (3.5-5.0) mmol/L Chloride (101-111) mmol/L Carbon Dioxide (22-32) mmol/L Anion Gap (2-11) mmol/L BUN (6-24) mg/dL Creatinine (0.51-0.95) mg/dL Est GFR ( Amer) (>60) Est GFR (Non-Af Amer) (>60) BUN/Creatinine Ratio (8-20) Glucose (70-100) mg/dL Calcium (8.6-10.3) mg/dL Total Bilirubin (0.2-1.0) mg/dL AST (13-39) U/L ALT (7-52) U/L Alkaline Phosphatase (34-104) U/L Total Protein (6.4-8.9) g/dL Albumin (3.2-5.2) g/dL Globulin (2-4) g/dL Albumin/Globulin Ratio (1-3) TSH (0.34-5.60) mcIU/mL Urine Color Yellow Urine Appearance Cloudy Urine pH 6.0 (5-9) Ur Specific [employer] [place] 1.005 L (1.010-1.030) Urine Protein Negative (Negative) Urine Ketones Negative (Negative) Urine Blood 1+ A (Negative) Urine Nitrate Positive A (Negative) Urine Bilirubin Negative (Negative) Urine Urobilinogen Negative (Negative) Ur Leukocyte Esterase 2+ A (Negative) Urine WBC (Auto) 2+(11-20/hpf) A (Absent) Urine RBC (Auto) 1+(3-5/hpf) A (Absent) Ur Squamous Epith Cells Present A (Absent) Urine Bacteria 1+ A (Absent) Urine Glucose 3+(>=500 mg/dl) A (Negative) Salicylates (<30) mg/dL Urine Opiates Screen (None Detect) Acetaminophen mcg/mL Ur Barbiturates Screen (None Detect) Ur Phencyclidine Scrn (None Detect) Ur Amphetamines Screen (None Detect) U Benzodiazepines Scrn (None Detect) Urine Cocaine Screen (None Detect) U Cannabinoids Screen (None Detect) Serum Alcohol (<10) mg/dL Impression: 37F alcoholic present in acute withdrawal w/o delirium DIAGNOSIS & PLAN Primary acute alcohol withdrawal : WA protocol Secondary anxiety : lorazapam per [place] protocol Admission Rational: observation for acute alcohol withdrawal DVTp: PUJA Code Status: full HCP:
[2018-01-10] MEDS: Folic Acid TAB* 1 MG PO SCH (08:59)
[2018-01-10] MEDS: Multivitamins/Minerals TAB PO SCH (08:59)
[2018-01-10] MEDS: Thiamine TAB* 100 MG TAB PO SCH (08:59)
--- NOTE | 2018-01-10 16:43 | PN ---
Hospitalist Progress Note Date of Service: 01/10/18 Pt seen and examined. Meds and labs reviewed. No O/N issues. ROS: Denied REYES/dizziness, F/C, N/V, CP, SOB, increased cough, sputum production , abd pain, diarrhea, constipation, dysuria, myalgias, arthralgias, throat pain , and new skin lesions. The rest of the 14 point ROS are unremarkable. PHYSICAL EXAM: GEN APPEARANCE: Awake, not in acute distress HEENT: NC/AT, PERRLA, moist oral mucosa, (-) throat erythema NECK: Soft, supple, (-) cervical LAD, (-)JVD HEART: S1S2 WNL, RRR, No MRG CHEST: CTA, BL, GAE, No W/R/R ABD: Soft, ND/NT, NABS 4x Q EXT: No C/C/E SKIN: Warm to touch PSYCH: No active psychosis, hallucinations, depression, SI/HI ASSESSMENT AND PLAN: #ETOH withdrawal: -Continue WAM protocol -Continue MVI and thiamine -Advised lifestyle modifications #GERD: -Continue Omeprazole #Insomnia: -Continue Melatonin #DVT prophylaxis (DVTp): -On PUJA stockings #Dispo: -As above -Possible D/C in 2-3 days, depending on WAM scores
[2018-01-11] MEDS: LORazepam INJ* 2 MG/ML 1 ML VIAL IV PUSH SCH ×11 (00:32→22:25)
[2018-01-11] MEDS: NS 0.9% 1000 ML* 1,000 ML IV SCH ×3 (01:56→20:41)
[2018-01-11] MEDS: Omeprazole CAP* 20 MG PO SCH (05:53)
[2018-01-11 07:49] LABS: EGFR Non-African American 121.2 (>60)
[2018-01-11 08:02] LABS: ABS Basophils 0 10^3/ul (0-0.2); ABS Eosinophils 0.2 10^3/ul (0-0.6); ABS Lymphocytes 0.8 10^3/ul (1.0-4.8); ABS Monocytes 0.4 10^3/ul (0-0.8); ABS Neutrophils 6.1 10^3/ul (1.5-7.7); ABS Nucleated RBC 0 10^3/ul; Eosinophil % 3.1 % (0-6); Hematocrit 36 % (35-47); Hemoglobin 11.5 g/dl (12.0-16.0); Lymphocyte % 10.6 % (25-47); Mean Corpuscular HGB Conc 32 g/dl (31-36); Mean Corpuscular Hemoglobin 27 pg (27-31); Mean Corpuscular Volume 83 fL (80-97); Mean Platelet Volume 7.2 um3 (7.4-10.4); Nucleated Red Blood Cells % 0; Platelet Count 269 10^3/ul (150-450); Red Cell Distribution Width 19 % (10.5-15); White Blood Count 7.5 10^3/ul (3.5-10.8)
[2018-01-11] MEDS ORDERED: Magnesium Sulfate 2 GM IV* 2 GM/50 ML BAG IVPB ONE (08:13)
[2018-01-11] MEDS: Folic Acid TAB* 1 MG PO SCH (08:21)
[2018-01-11] MEDS: Multivitamins/Minerals TAB PO SCH (08:21)
[2018-01-11] MEDS: Thiamine TAB* 100 MG TAB PO SCH (08:21)
--- NOTE | 2018-01-11 14:17 | PN ---
Hospitalist Progress Note Date of Service: 01/11/18 Pt seen and examined. Meds and labs reviewed. Spoke with pt today regarding her relapse. Mentioned her usual triggers is when the house is dirty. She does mention that her does her part but is somewhat concerned to ask for more help and mentioned she once brought up counseling but he didnt seem interested. She was tearful when she described her goal of improving but knows that alcohol addiction will need more support. I offered to speak to her Shree and was very understanding of his wifes situation and would like to be more supportive. He mentions he will speak more to his when he gets home, perhaps help out a bit more, and would be open to counseling. ROS: Denied REYES/dizziness, F/C, N/V, CP, SOB, increased cough, sputum production , abd pain, diarrhea, constipation, dysuria, myalgias, arthralgias, throat pain , and new skin lesions. The rest of the 14 point ROS are unremarkable. PHYSICAL EXAM: GEN APPEARANCE: Awake, not in acute distress HEENT: NC/AT, PERRLA, moist oral mucosa, (-) throat erythema NECK: Soft, supple, (-) cervical LAD, (-)JVD HEART: S1S2 WNL, RRR, No MRG CHEST: CTA, BL, GAE, No W/R/R ABD: Soft, ND/NT, NABS 4x Q EXT: No C/C/E SKIN: Warm to touch PSYCH: No active psychosis, hallucinations, depression, SI/HI. Despite being tearful of her current situation, when asked she denied anhedonia nor depression. ASSESSMENT AND PLAN: #ETOH withdrawal: -Continue WAM protocol -Continue MVI and thiamine -Advised lifestyle modifications #UTI, E. coli: -Will start pt on Rocephin and will await sensitivity data #GERD: -Continue Omeprazole #Insomnia: -Continue Melatonin #DVT prophylaxis (DVTp): -On PUJA stockings #Dispo: -As above -Possible D/C in 1-2 days, depending on WAM scores -Will need referral for counseling -Pt already aware of AA meetings and outpatient rehab services
[2018-01-11] MEDS: cefTRIAXone(*) 1 GM in NS 0.9% 50 ML* 50 ML IVPB SCH (15:26)
[2018-01-11] MEDS ORDERED: Mouth Piece, Nicotine* 1 EACH CARTRIDGE INH ONE (20:00)
[2018-01-11] MEDS: Nicotine Inhaler* 10 MG AMP INH PRN (20:41)
[2018-01-12] MEDS: LORazepam INJ* 2 MG/ML 1 ML VIAL IV PUSH SCH ×9 (00:30→22:22)
[2018-01-12] MEDS: NS 0.9% 1000 ML* 1,000 ML IV SCH ×3 (04:37→20:44)
[2018-01-12 05:51] LABS: Hematocrit 36 % (35-47); Hemoglobin 11.5 g/dl (12.0-16.0); Mean Corpuscular HGB Conc 32 g/dl (31-36); Mean Corpuscular Hemoglobin 27 pg (27-31); Mean Corpuscular Volume 83 fL (80-97); Mean Platelet Volume 6.8 um3 (7.4-10.4); Platelet Count 229 10^3/ul (150-450); Red Blood Count 4.33 10^6/ul (4.0-5.4); Red Cell Distribution Width 18 % (10.5-15); White Blood Count 6.4 10^3/ul (3.5-10.8)
[2018-01-12] MEDS: Omeprazole CAP* 20 MG PO SCH (05:53)
[2018-01-12 06:40] LABS: EGFR Non-African American 138.1 (>60)
[2018-01-12] MEDS: Folic Acid TAB* 1 MG PO SCH (08:31)
[2018-01-12] MEDS: hydrALAZINE IV* 20 MG/ML VIAL IV SLOW PU PRN ×3 (08:31→20:08)
[2018-01-12] MEDS: Thiamine TAB* 100 MG TAB PO SCH (08:32)
[2018-01-12] MEDS: Multivitamins/Minerals TAB PO SCH (08:32)
[2018-01-12] MEDS: Nicotine Inhaler* 10 MG AMP INH PRN ×2 (11:33→23:07)
[2018-01-12] MEDS ORDERED: Mouth Piece, Nicotine* 1 EACH CARTRIDGE ONE ×2 (11:36→23:06)
[2018-01-12] MEDS: cefTRIAXone(*) 1 GM in NS 0.9% 50 ML* 50 ML IVPB SCH (15:24)
--- NOTE | 2018-01-12 16:13 | PN ---
Hospitalist Progress Note Date of Service: 01/12/18 Pt seen and examined. Meds and labs reviewed. Pt wanted to go home today. However, upon review of her WAMs score and her BZD needs, it has been advised that she stay for at least another night and maybe another one after that. She agreed to stay and be reassessed in AM. Data reviewed with nursing staff. PHYSICAL EXAM: GEN APPEARANCE: Awake, not in acute distress HEENT: NC/AT, PERRLA, moist oral mucosa, (-) throat erythema NECK: Soft, supple, (-) cervical LAD, (-)JVD HEART: S1S2 WNL, RRR, No MRG CHEST: CTA, BL, GAE, No W/R/R ABD: Soft, ND/NT, NABS 4x Q EXT: No C/C/E SKIN: Warm to touch PSYCH: No active psychosis, hallucinations, depression, SI/HI. Despite being tearful of her current situation, when asked she denied anhedonia nor depression. ASSESSMENT AND PLAN: #ETOH withdrawal: -Continue WAM protocol -Continue MVI and thiamine -Advised lifestyle modifications #UTI, E. coli: -Continue Rocephin Day #2/3 #GERD: -Continue Omeprazole #Insomnia: -Continue Melatonin #DVT prophylaxis (DVTp): -On PUJA stockings #Dispo: -As above -Possible D/C in 1-2 days, depending on WAM scores -Will need referral for counseling -Pt already aware of AA meetings and outpatient rehab services
[2018-01-12] MEDS ORDERED: NS 0.9% 500 ML* 500 ML IV ONE (20:29)
[2018-01-13] MEDS: LORazepam INJ* 2 MG/ML 1 ML VIAL IV PUSH SCH ×6 (00:20→17:53)
[2018-01-13] MEDS: Omeprazole CAP* 20 MG PO SCH (05:41)
[2018-01-13] MEDS: NS 0.9% 1000 ML* 1,000 ML IV SCH ×3 (05:42→23:47)
[2018-01-13 05:45] LABS: ABS Basophils 0 10^3/ul (0-0.2); ABS Eosinophils 0.2 10^3/ul (0-0.6); ABS Lymphocytes 1.2 10^3/ul (1.0-4.8); ABS Monocytes 0.7 10^3/ul (0-0.8); ABS Nucleated RBC 0 10^3/ul; Eosinophil % 3.1 % (0-6); Hematocrit 34 % (35-47); Lymphocyte % 16.8 % (25-47); Mean Corpuscular HGB Conc 33 g/dl (31-36); Mean Corpuscular Hemoglobin 27 pg (27-31); Mean Corpuscular Volume 82 fL (80-97); Nucleated Red Blood Cells % 0.1; Platelet Count 232 10^3/ul (150-450); Red Blood Count 4.09 10^6/ul (4.0-5.4); Red Cell Distribution Width 18 % (10.5-15); White Blood Count 7.2 10^3/ul (3.5-10.8)
[2018-01-13] MEDS: Folic Acid TAB* 1 MG PO SCH (08:43)
[2018-01-13] MEDS: Thiamine TAB* 100 MG TAB PO SCH (08:43)
[2018-01-13] MEDS: Multivitamins/Minerals TAB PO SCH (08:43)
[2018-01-13] MEDS: cefTRIAXone(*) 1 GM in NS 0.9% 50 ML* 50 ML IVPB SCH (15:22)
--- NOTE | 2018-01-13 15:51 | PN ---
Subjective Date of Service: 01/13/18 Interval History: Pt is feeling ok. She states overall her jitteriness is improved some. Nursing notes she is still hallucinating some. Objective Active Medications: Acetaminophen (Tylenol Tab*) 650 mg PO Q4H PRN PRN Reason: PAIN Last Admin: 01/10/18 16:34 Dose: 650 mg Albuterol (Ventolin 2.5 Mg/3 Ml Neb.Kori*) 2.5 mg INH Q2H PRN PRN Reason: SOB/WHEEZING Folic Acid (Folvite Tab*) 1 mg PO DAILY [facility] Last Admin: 01/13/18 08:43 Dose: 1 mg Hydralazine HCl (Apresoline Iv*) 5 mg IV SLOW PU Q6H PRN PRN Reason: BP >/= 160/90 Last Admin: 01/12/18 20:08 Dose: 5 mg Sodium Chloride (Ns 0.9% 1000 Ml*) 1,000 mls @ 125 mls/hr IV PER RATE [facility] Last Admin: 01/13/18 15:24 Dose: 125 mls/hr Lorazepam (Ativan Inj*) 0 - 6 mg IV PUSH .[facility] PROTOCOL [facility] PRN Reason: Protocol Last Admin: 01/13/18 11:58 Dose: 2 mg Melatonin (Melatonin (Nf)) 3 mg PO BEDTIME PRN; Protocol PRN Reason: Sleep Multivitamins/Minerals (Theragran/Minerals Tab*) 1 tab PO DAILY [facility] Last Admin: 01/13/18 08:43 Dose: 1 tab Nicotine (Nicotine Inhaler*) 10 mg INH Q2H PRN PRN Reason: CRAVING Last Admin: 01/12/18 23:07 Dose: 10 mg Omeprazole (Prilosec Cap*) 20 mg PO DAILY@0600 [facility] Last Admin: 01/13/18 05:41 Dose: 20 mg Ondansetron HCl (Zofran Odt Tab*) 4 mg PO Q6H PRN PRN Reason: n/v Sertraline HCl (Zoloft*) 50 mg PO DAILY [facility] Thiamine HCl (Vitamin B-1 Tab*) 100 mg PO DAILY [facility] Last Admin: 01/13/18 08:43 Dose: 100 mg Vital Signs - 8 hr 01/13/18 01/13/18 01/13/18 08:01 08:38 08:45 Temperature 98.4 F Pulse Rate 93 Respiratory 18 16 16 Rate Blood Pressure 133/82 (mmHg) O2 Sat by Pulse 99 Oximetry 01/13/18 01/13/18 01/13/18 09:53 10:08 11:51 Temperature 98.1 F 98.2 F 98.1 F Pulse Rate 94 122 111 Respiratory 16 20 16 Rate Blood Pressure 145/82 131/82 (mmHg) O2 Sat by Pulse 98 100 100 Oximetry 01/13/18 01/13/18 01/13/18 11:52 11:53 11:58 Temperature Pulse Rate 109 112 Respiratory 16 Rate Blood Pressure 156/101 (mmHg) O2 Sat by Pulse 100 Oximetry 01/13/18 01/13/18 12:59 13:49 Temperature 98.6 F Pulse Rate 115 Respiratory 16 16 Rate Blood Pressure 152/68 (mmHg) O2 Sat by Pulse 98 Oximetry Oxygen Devices in Use Now: None Appearance: Young female lying in bed sleeping, awakens to voice, NAD Eyes: No Scleral Icterus Ears/Nose/Mouth/Throat: Mucous Membranes Moist Respiratory: Symmetrical Chest Expansion and Respiratory Effort, Clear to Auscultation Cardiovascular: NL Sounds; No Murmurs; No JVD, RRR, No Edema Abdominal: NL Sounds; No Tenderness; No Distention Extremities: No Clubbing, Cyanosis Skin: No Nodules or Sclerosis Neurological: - - sleepy Result Diagrams: 01/13/18 05:35 01/13/18 05:35 Additional Lab and Data: Lab Results 01/09/18 01/09/18 01/09/18 Range/Units 19:37 19:37 19:40 WBC 13.6 H (3.5-10.8) 10^3/ul RBC 4.86 (4.0-5.4) 10^6/ul Hgb 13.0 (12.0-16.0) g/dl Hct 40 (35-47) % MCV 82 (80-97) fL MCH 27 (27-31) pg MCHC 33 (31-36) g/dl RDW 19 H (10.5-15) % Plt Count 412 (150-450) 10^3/ul MPV 6.4 L (7.4-10.4) um3 Neut % (Auto) 83.5 H (38-83) % Lymph % (Auto) 10.0 L (25-47) % [place] % (Auto) 6.0 (0-7) % Eos % (Auto) 0.3 (0-6) % Baso % (Auto) 0.2 (0-2) % Absolute Neuts (auto) 11.4 H (1.5-7.7) 10^3/ul Absolute Lymphs (auto) 1.4 (1.0-4.8) 10^3/ul Absolute Monos (auto) 0.8 (0-0.8) 10^3/ul Absolute Eos (auto) 0 (0-0.6) 10^3/ul Absolute Basos (auto) 0 (0-0.2) 10^3/ul Absolute Nucleated RBC 0 10^3/ul Nucleated RBC % 0 Sodium 142 (139-145) mmol/L Potassium 3.7 (3.5-5.0) mmol/L Chloride 99 L (101-111) mmol/L Carbon Dioxide 31 (22-32) mmol/L Anion Gap 12 H (2-11) mmol/L BUN 4 L (6-24) mg/dL Creatinine 0.64 (0.51-0.95) mg/dL Est GFR ( Amer) 133.6 (>60) Est GFR (Non-Af Amer) 103.9 (>60) BUN/Creatinine Ratio 6.3 L (8-20) Glucose 139 H (70-100) mg/dL Calcium 9.1 (8.6-10.3) mg/dL Total Bilirubin 0.30 (0.2-1.0) mg/dL AST 44 H (13-39) U/L ALT 36 (7-52) U/L Alkaline Phosphatase 86 (34-104) U/L Total Protein 8.0 (6.4-8.9) g/dL Albumin 4.8 (3.2-5.2) g/dL Globulin 3.2 (2-4) g/dL Albumin/Globulin Ratio 1.5 (1-3) TSH 0.99 (0.34-5.60) mcIU/mL Urine Color Urine Appearance Urine pH (5-9) Ur Specific [place] (1.010-1.030) Urine Protein (Negative) Urine Ketones (Negative) Urine Blood (Negative) Urine Nitrate (Negative) Urine Bilirubin (Negative) Urine Urobilinogen (Negative) Ur Leukocyte Esterase (Negative) Urine WBC (Auto) (Absent) Urine RBC (Auto) (Absent) Ur Squamous Epith Cells (Absent) Urine Bacteria (Absent) Urine Glucose (Negative) Salicylates < 2.50 (<30) mg/dL Urine Opiates Screen None detected (None Detect) Acetaminophen < 15 mcg/mL Ur Barbiturates Screen None detected (None Detect) Ur Phencyclidine Scrn None detected (None Detect) Ur Amphetamines Screen None detected (None Detect) U Benzodiazepines Scrn None detected (None Detect) Urine Cocaine Screen None detected (None Detect) U Cannabinoids Screen None detected (None Detect) Serum Alcohol 361 H (<10) mg/dL 01/09/18 Range/Units 19:42 WBC (3.5-10.8) 10^3/ul RBC (4.0-5.4) 10^6/ul Hgb (12.0-16.0) g/dl Hct (35-47) % MCV (80-97) fL MCH (27-31) pg MCHC (31-36) g/dl RDW (10.5-15) % Plt Count (150-450) 10^3/ul MPV (7.4-10.4) um3 Neut % (Auto) (38-83) % Lymph % (Auto) (25-47) % [place] % (Auto) (0-7) % Eos % (Auto) (0-6) % Baso % (Auto) (0-2) % Absolute Neuts (auto) (1.5-7.7) 10^3/ul Absolute Lymphs (auto) (1.0-4.8) 10^3/ul Absolute Monos (auto) (0-0.8) 10^3/ul Absolute Eos (auto) (0-0.6) 10^3/ul Absolute Basos (auto) (0-0.2) 10^3/ul Absolute Nucleated RBC 10^3/ul Nucleated RBC % Sodium (139-145) mmol/L Potassium (3.5-5.0) mmol/L Chloride (101-111) mmol/L Carbon Dioxide (22-32) mmol/L Anion Gap (2-11) mmol/L BUN (6-24) mg/dL Creatinine (0.51-0.95) mg/dL Est GFR ( Amer) (>60) Est GFR (Non-Af Amer) (>60) BUN/Creatinine Ratio (8-20) Glucose (70-100) mg/dL Calcium (8.6-10.3) mg/dL Total Bilirubin (0.2-1.0) mg/dL AST (13-39) U/L ALT (7-52) U/L Alkaline Phosphatase (34-104) U/L Total Protein (6.4-8.9) g/dL Albumin (3.2-5.2) g/dL Globulin (2-4) g/dL Albumin/Globulin Ratio (1-3) TSH (0.34-5.60) mcIU/mL Urine Color Yellow Urine Appearance Cloudy Urine pH 6.0 (5-9) Ur Specific [place] 1.005 L (1.010-1.030) Urine Protein Negative (Negative) Urine Ketones Negative (Negative) Urine Blood 1+ A (Negative) Urine Nitrate Positive A (Negative) Urine Bilirubin Negative (Negative) Urine Urobilinogen Negative (Negative) Ur Leukocyte Esterase 2+ A (Negative) Urine WBC (Auto) 2+(11-20/hpf) A (Absent) Urine RBC (Auto) 1+(3-5/hpf) A (Absent) Ur Squamous Epith Cells Present A (Absent) Urine Bacteria 1+ A (Absent) Urine Glucose 3+(>=500 mg/dl) A (Negative) Salicylates (<30) mg/dL Urine Opiates Screen (None Detect) Acetaminophen mcg/mL Ur Barbiturates Screen (None Detect) Ur Phencyclidine Scrn (None Detect) Ur Amphetamines Screen (None Detect) U Benzodiazepines Scrn (None Detect) Urine Cocaine Screen (None Detect) U Cannabinoids Screen (None Detect) Serum Alcohol (<10) mg/dL Assess/Plan/Problems-Billing Ms Reveles is a 37 yo F who has a h/o alcoholism and anxiety who presented to the ER with c/o alcohol withdrawal. - Patient Problems (1) Alcohol withdrawal Current Visit: Yes Status: Acute Code(s): F10.239 - ALCOHOL DEPENDENCE WITH WITHDRAWAL, UNSPECIFIED SNOMED Code(s): 975378640 Comment: The patient continues to show signs of withdrawal. Continue WAM protocol. She has not needed as much ativan since later AM today but she received ativan almost q2hr overnight. (2) HTN (hypertension) Current Visit: Yes Status: Acute Code(s): I10 - ESSENTIAL (PRIMARY) HYPERTENSION SNOMED Code(s): 88493582 Comment: Start amlodipine 2.5mg daily and monitor BP. She likely needs treatment fdc. (3) Depression Current Visit: Yes Status: Acute Code(s): F32.9 - MAJOR DEPRESSIVE DISORDER , SINGLE EPISODE, UNSPECIFIED SNOMED Code(s): 03567209 Comment: Continue Zoloft (4) DVT prophylaxis Current Visit: Yes Status: Acute Code(s): FHP4032 - SNOMED Code(s): 178504278 Comment: ambulation
[2018-01-13] MEDS: amLODIPine TAB* 5 MG PO SCH (16:03)
[2018-01-14] MEDS: Omeprazole CAP* 20 MG PO SCH (06:05)
[2018-01-14] MEDS ORDERED: cefTRIAXone(*) 1 GM in NS 0.9% 50 ML* 50 ML IVPB SCH (08:00)
[2018-01-14] MEDS: amLODIPine TAB* 5 MG PO SCH (08:50)
[2018-01-14] MEDS: Thiamine TAB* 100 MG TAB PO SCH (08:51)
[2018-01-14] MEDS: Multivitamins/Minerals TAB PO SCH (08:51)
[2018-01-14] MEDS: Folic Acid TAB* 1 MG PO SCH (08:51)
[2018-01-14] MEDS ORDERED: Sertraline* 50 MG TAB PO SCH (09:00)
[2018-01-14 12:03] VITALS: BP 149/94
--- NOTE | 2018-01-15 08:44 | DS ---
CC: Dr. Bernard * DISCHARGE SUMMARY: DATE OF ADMISSION: 01/10/18 DATE OF DISCHARGE: 01/13/18 DISCHARGE DIAGNOSES: 1. Alcohol withdrawal. 2. Hypertension. 3. Urinary tract infection. SECONDARY DIAGNOSES: 1. History of alcoholism. 2. History of anxiety, depression. MEDICATIONS AT DISCHARGE: Include: 1. Multivitamin 1 tablet daily. 2. Amlodipine 2.5 mg daily. 3. Cefdinir 300 mg p.o. b.i.d. for a total of 4 days. The patient received a dose of ceftriaxone prior to discharge. 4. Zoloft 50 mg daily. LABORATORY DATA AND STUDIES PERFORMED DURING THE HOSPITAL STAY: Included: On , white blood cell count of 7.2, hemoglobin 11.0, hematocrit of 34, and platelets of 232. Sodium 139, potassium 3.4, chloride 110, carbon dioxide 24, BUN 7, creatinine 0.52. Serum alcohol at admission was noted to be 361. Urine cultures were positive for E. coli that was resistant of propoxyphene, levofloxacin, and ampicillin, tetracycline, and Bactrim. HOSPITALIZATION COURSE: Halima Reveles is a 37-year-old female with history of alcoholism, who presented to the hospital, intoxicated on 01/09/18. The patient was treated for alcohol withdrawal with Ativan throughout her hospital stay. By the time of discharge, she has not required Ativan for nearly 24 hours. She is pleasant, cooperative, and oriented x3. She is set up with drug and alcohol consult meetings after going home. The patient also recommended to follow up with Dr. Bernard after discharge. PHYSICAL EXAMINATION AT THE TIME OF DISCHARGE: Blood pressure of 142/95, heart rate of 86, respiratory rate 17, oxygen saturation 100% on room air, temperature 98.0. General: The patient is a very pleasant 37-year-old female who is in no acute distress. Alert, awake, and oriented x3. HEENT: Head: Atraumatic, normocephalic. Eyes: Pupils are equal, reactive to light and accommodation. Oropharynx clear. Mucosa moist. Neck: Supple. No JVD. No bruits bilaterally. Cardiovascular: Regular rate and rhythm. No murmur. Respiratory: Clear to auscultation bilaterally. Abdomen: Soft, nontender. Bowel sounds are present in all 4 quadrants. Extremities: There is no edema. Pulses +2 bilaterally. No clubbing or cyanosis. On neuro evaluation, speech clear. Cranial nerves II through XII grossly intact. Motor strength is 5/5 bilaterally. Please note this is a short summary of the patient's hospitalization. Please refer to further medical records for details. TIME SPENT: Approximately 40 minutes was spent on the patient's discharge. [id number]/[facility] #: [id number] [facility]
== END 2018-01-14 13:10 | disposition home or self-care (01) | DRG 775 ==
LOC: ED 17:30 → MED 01-10 02:24 → OBSVTOIN 01-11 14:22
PROVIDERS: ADMIT Hospitalist; ATTEND Internal Medicine
DX: F10.239 Alcohol dependence with withdrawal, unspecified (principal); N39.0 Urinary tract infection, site not specified; Y90.8 Blood alcohol level of 240 mg/100 ml or more; I10 Essential (primary) hypertension; B96.20 Unspecified Escherichia coli [E. coli] as the cause of diseases classified elsewhere; F41.8 Other specified anxiety disorders; Z16.24 Resistance to multiple antibiotics; Z79.899 Other long term (current) drug therapy; Z80.8 Family history of malignant neoplasm of other organs or systems; G47.00 Insomnia, unspecified
CPT/HCPCS: 36415; 80048; 80053; 80307; 80320; 80329; 81003; 81015; 83735; 84443; 85025; 85027; 87077; 87086; 87186; 99285; A9270-GY; G0378; G0480; J0360; J0696; J2060; J3475

== ENCOUNTER 2018-07-18 13:18 | Inpatient (IN) | payer BC ==
[2018-07-18] MEDS ORDERED: LORazepam TAB(*) 1 MG PO ONE (13:44)
[2018-07-18 13:47] LABS: ABS Basophils 0.1 10^3/ul (0-0.2); ABS Eosinophils 0.1 10^3/ul (0-0.6); ABS Lymphocytes 0.8 10^3/ul (1.0-4.8); ABS Monocytes 0.4 10^3/ul (0-0.8); ABS Neutrophils 3.3 10^3/ul (1.5-7.7); ABS Nucleated RBC 0 10^3/ul; Eosinophil % 2.1 % (0-6); Hematocrit 41 % (35-47); Mean Corpuscular HGB Conc 32 g/dl (31-36); Mean Corpuscular Hemoglobin 28 pg (27-31); Mean Corpuscular Volume 88 fL (80-97); Mean Platelet Volume 6.2 fL (7.4-10.4); Nucleated Red Blood Cells % 0.1; Platelet Count 285 10^3/ul (150-450); Red Blood Count 4.62 10^6/ul (4.00-5.40); Red Cell Distribution Width 22 % (10.5-15); White Blood Count 4.7 10^3/ul (3.5-10.8)
--- NOTE | 2018-07-18 14:08 | ED ---
Substance Abuse/Use - HPI Summary HPI Summary: The pt is a 37 y/o female [place] [facility] [place]/o alcohol withdrawal symptoms since yesterday night. She usually consumes 10 airplane-size vodka bottles a day for the last 2 months worsened by anxiety. Her last drink was 10:00 hrs today. She notes depression, anxiety, palpitations, hallucinations and tremors but denies SI/HI. She denies a hx of smoking and substance use. The patient requests referral to detox services. Home Medications Medication Instructions Recorded Confirmed Type NK [No Home Medications Reported] 07/18/18 07/18/18 History - History Of Current Complaint Chief Complaint: EDSubstanceAbuse Stated Complaint: DETOX REQUEST Time Seen by Provider: 07/18/18 13:30 Hx Obtained From: Patient Hx Last Menstrual Period: now Onset/Duration of Drug/ETOH Abuse: Increased Since: - 2 months ago Ingestion History: Type/Name Of Drug - EtOH, Amount Ingested - 10 drinks a day Timing Of Abuse: Daily Character: Depressed, Anxious Aggravating Factor(s): Other - Anxiety Alleviating Factor(s): Nothing Associated Signs And Symptoms: Tremulous, Other: - Hallucinations, Related Hx: Drug/Alcohol Last Used @ - 10:00 hrs today - Allergies/Home Medications Allergies/Adverse Reactions: Allergies Allergy/AdvReac Type Severity Reaction Status Date / Time No Known Allergies Allergy Verified 12/06/17 17:59 Home Medications: Home Medications NK [No Home Medications Reported] 07/18/18 [History Confirmed 07/18/18] PMH/Surg Hx/FS Hx/Imm Hx Previously Healthy: No Endocrine/Hematology History: Denies: Hx Blood Disorders, Hx Blood Transfusions, Hx Bone Marrow Disease Respiratory History: Denies: Hx Asthma, Hx Bronchopulmonary Dysplasia, Hx Chronic Bronchitis History: Denies: Hx Acute Renal Failure, Hx Benign Prostatic Hyperplasia Sensory History: Denies: Hx Contacts or Glasses, Hx Deafness, Hx Hearing Aid Opthamlomology History: Denies: Hx Contacts or Glasses Neurological History: Denies: Hx CVA Psychiatric History: Reports: Hx Anxiety - Cancer History Cancer Type, Location and Year: None reported - Surgical History Surgery Procedure, Year, and Place: None reported Infectious Disease History: No Infectious Disease History: Denies: Traveled Outside the [place] in Last 30 Days - Family History Known Family History: Positive: Other - AAA killed her mother at 34 y/o; father of [place] Negative: Cardiac Disease, Hypertension, Diabetes, Renal Disease, Respiratory Disease, Seizure Disorder - Social History Occupation: Employed Full-time Lives: With Family Alcohol Use: Daily Alcohol Amount: 10 drinks daily (airplane bottle size) Hx Substance Use: No Substance Use Type: Reports: None Substance Use Comment - Amount & Last Used: 11/11/17 @ 1000 Hx Tobacco Use: Yes Smoking Status (MU): Never Smoked Tobacco Type: Cigarettes Have You Smoked in the Last Year: Yes Review of Systems Positive: Palpitations Positive: no symptoms reported Neurological: Other - Positive: Tremors Psychological: Other - Positive: Hallucinations Positive: Anxious, Depressed, Other - Negative: SI/HI All Other Systems Reviewed And Are Negative: Yes Physical Exam - Summary Physical Exam Summary: Appearance: Well appearing, no pain distress Skin: warm, dry, reflects adequate perfusion Head/face: normal Eyes: EOMI, LESLY ENT: normal Neck: supple, non-tender Respiratory: CTA, breath sounds present Cardiovascular: Tachycardic, pulses symmetrical Abdomen: non-tender, soft Bowel: present Musculoskeletal: normal, strength/ROM intact Neuro: normal, sensory motor intact, A&Ox3 Vital Signs On Initial Exam: Initial Vitals Temp Pulse Resp BP Pulse Ox 98.1 F 118 20 167/119 97 07/18/18 13:34 07/18/18 13:34 07/18/18 13:34 07/18/18 13:34 07/18/18 13:34 Diagnostics - Vital Signs Vital Signs Temp Pulse Resp BP Pulse Ox 07/18/18 13:54 20 07/18/18 13:34 98.1 F 118 20 167/119 97 - Laboratory Lab Results: Lab Results 07/18/18 07/18/18 Range/Units 13:39 13:39 WBC 4.7 (3.5-10.8) 10^3/ul RBC 4.62 (4.00-5.40) 10^6/ul Hgb 13.0 (12.0-16.0) g/dl Hct 41 (35-47) % MCV 88 (80-97) fL MCH 28 (27-31) pg MCHC 32 (31-36) g/dl RDW 22 H (10.5-15) % Plt Count 285 (150-450) 10^3/ul MPV 6.2 L (7.4-10.4) fL Neut % (Auto) 69.8 (38-83) % Lymph % (Auto) 18.0 L (25-47) % [place] % (Auto) 8.8 H (0-7) % Eos % (Auto) 2.1 (0-6) % Baso % (Auto) 1.3 (0-2) % Absolute Neuts (auto) 3.3 (1.5-7.7) 10^3/ul Absolute Lymphs (auto) 0.8 L (1.0-4.8) 10^3/ul Absolute Monos (auto) 0.4 (0-0.8) 10^3/ul Absolute Eos (auto) 0.1 (0-0.6) 10^3/ul Absolute Basos (auto) 0.1 (0-0.2) 10^3/ul Absolute Nucleated RBC 0 10^3/ul Nucleated RBC % 0.1 Sodium 141 (135-145) mmol/L Potassium 3.9 (3.5-5.0) mmol/L Chloride 105 (101-111) mmol/L Carbon Dioxide 24 (22-32) mmol/L Anion Gap 12 H (2-11) mmol/L BUN 4 L (6-24) mg/dL Creatinine 0.65 (0.51-0.95) mg/dL Est GFR ( Amer) 123.4 (>60) Est GFR (Non-Af Amer) 102.0 (>60) BUN/Creatinine Ratio 6.2 L (8-20) Glucose 131 H (70-100) mg/dL Calcium 9.0 (8.6-10.3) mg/dL Total Bilirubin 0.30 (0.2-1.0) mg/dL AST 79 H (13-39) U/L ALT 55 H (7-52) U/L Alkaline Phosphatase 67 (34-104) U/L Total Protein 7.6 (6.4-8.9) g/dL Albumin 4.7 (3.2-5.2) g/dL Globulin 2.9 (2-4) g/dL Albumin/Globulin Ratio 1.6 (1-3) TSH Pending Beta HCG, Quant Pending Salicylates Pending Acetaminophen Pending Serum Alcohol Pending Result Diagrams: 07/18/18 13:39 07/18/18 13:39 Lab Statement: Any lab studies that have been ordered have been reviewed, and results considered in the medical decision making process. Course/Dx - Course Course Of Treatment: A 37 year-old F presents to the ED with a CC of alcohol withdrawal symptoms since yesterday night. She usually consumes 10 drinks a day for the last 2 months worsened by anxiety. Her last drink was 22:00 hrs yesterday night. She notes depression, anxiety, tachycardia, hallucinations and tremors but denies SI/HI. A physical exam revealed tachycardia. Labs revealed elevated serum alcohol. In the ED course, pt was given Lorazepam 1 mg PO which improved the symptoms. Patient will be admitted to Dr. Timothy MD with a final Dx of alcohol intoxication, alcohol withdrawal and depression. Pt is agreeable with this plan. Allergies noted. - Diagnoses Differential Diagnosis/HQI/PQRI: Positive: Alcohol Abuse, Alcohol Withdrawal, Depression Provider Diagnoses: Alcohol intoxication, Alcohol withdrawal, Depression - Physician Notifications Discussed Care Of Patient With: Saad Aguirre - Hospitalist Time Discussed With Above Provider: 18:00 Instructed by Provider To: Admit As Inpatient Discharge - Sign-Out/Discharge Documenting (check all that apply): Patient Departure - Admit - Discharge Plan Condition: Stable Disposition: ADMITTED TO [facility] Referrals: Naina Bernard MD [Primary Care Provider] - - Billing Disposition and Condition Condition: STABLE Disposition: Admitted to [facility] - Attestation Statements Document Initiated by Jackibe: Yes Documenting Scribe: Sharron Napier Provider For Whom Shannen is Documenting (Include Credential): Dr. Waqas Camacho MD Scribe Attestation: Sharron Gayle , scribed for Dr. Waqas Camacho MD on 07/18/18 at 1855. Scribe Documentation Reviewed: Yes Provider Attestation: The documentation as recorded by the Sharron paiz accurately reflects the service I personally performed and the decisions made by me, Dr. Waqas Camacho MD
[2018-07-18] MEDS ORDERED: Ondansetron INJ* 2 MG/ML VIAL IV PRN (18:05)
[2018-07-18] MEDS ORDERED: Thiamine IV 100 MG, Folic Acid IV* 1 MG, Multiple Vitamin IV ADULT* 10 ML in NS 0.9% 10... IV ONE (18:05)
[2018-07-18] MEDS: LORazepam TAB(*) 1 MG PO SCH (20:00)
--- NOTE | 2018-07-18 20:58 | HP ---
CC: Dr. Bernard * HISTORY AND PHYSICAL: DATE OF ADMISSION: 07/18/18 MY ATTENDING PHYSICIAN WHILE IN THE HOSPITAL: Dr. Cedillo * (report dictated by Donta Campbell NP). CHIEF COMPLAINT: Alcohol abuse. HISTORY OF PRESENT ILLNESS: Ms. Reveles is a 37-year-old female patient, who has a history of anxiety and alcohol abuse. She says that she has been drinking 10 beverages a day and she has been trying to self-wean off the alcohol , but any time she does, she noticed that she starting to get withdrawal, so she became scared because she has gone through pretty significant withdrawals in the past. She typically has shakes, tremors, sweating. She gets tachycardic , fast heart rate, palpitations. She has never had a seizure and she has never been to a program, but she says she is interested in trying to get help to get through this. She says that she has not been vomiting. She denies having any chest pain or shortness of breath. She says that she has been having difficulty with coming off the alcohol because of withdrawal, so she decided to come into the ED today. When she came in, it was noted that she was tachycardic , she did appear to be diaphoretic and it was noted that her alcohol level was over 500, so because of these findings we were asked to evaluate for admission. PAST MEDICAL HISTORY: Significant for: 1. Anxiety. 2. Alcohol abuse. PAST SURGICAL HISTORY: Denied. HOME MEDICATIONS: Denied. ALLERGIES TO MEDICATIONS: Include no known drug allergies. FAMILY HISTORY: Mother had a history of AAA. Father had a history of multiple myeloma. SOCIAL HISTORY: She does not smoke. She does drink 10 drinks a day. Surrogate decision maker is her partner, [place]. REVIEW OF SYSTEMS: There is no documented fever. She denies having any significant weight change. There is no double vision. She denies having any ear discharge. She denies having any rhinorrhea. There is no shortness of breath. She denies having any abdominal pain. There was no nausea. There is no vomiting. There was no dysuria. There is no frequency. There was no seizure , no loss of consciousness. No pruritus and no skin ulcerations. Review of 14 systems was completed, all others negative. PHYSICAL EXAMINATION GENERAL: At this time, Ms. Reveles is a 37-year-old female patient. She is sitting in the ED stretcher. She does not appear to be in any acute distress. She appears to be well nourished and well developed. VITAL SIGNS: Blood pressure 124/82, heart rate was 120, respirations 18, O2 saturation was 95% on room air, temperature was 98.1. HEENT: Head: Atraumatic and normocephalic. Eyes: EOMs intact. Sclerae anicteric and not pale. Throat: Oral mucosa appears to be moist. No oropharyngeal erythema. NECK: Supple. LUNGS: Clear to auscultation bilaterally. There were no wheezes, rales, or rhonchi. HEART: Sounds S1, S2. She had a regular rate and rhythm. She was tachycardic. There were no murmurs, rubs, or gallops. ABDOMEN: Soft. It was flat. It was nontender. Bowel sounds are present. EXTREMITIES: Pulses were 2+ throughout. She is moving all 4 extremities with 5 /5 strength. NEUROLOGIC: The patient is awake. She is alert. She is oriented x3. Tongue is midline. Vehicle Modification Technician were equal. She had no gross focal deficits. SKIN: Grossly intact. LABORATORY DATA: The labs today reveal a WBC of 4.7, RBC of 4.62, hemoglobin of 13.0, hematocrit of 41, platelet count of 285. Her sodium was 141, potassium was 3.9, chloride of 105, bicarb was 24, BUN 4, creatinine of 0.65, glucose 113. Total bili 0.3, AST 79, ALT 55. Albumin of 4.7. test was negative. TSH was normal. Toxicology: Tylenol level was 1 and the salicylates were negative, alcohol was 505. Old medical records were reviewed. ASSESSMENT AND PLAN: Ms. Reveles is a 37-year-old female patient coming into the ED today with complaints of alcohol abuse, in addition to this signs of withdrawal. We were asked to evaluate for admission. She will be admitted under observation status for: 1. Alcoholism. At this point, with early signs of withdrawal, at this point, I will go ahead and put her on WAM protocol. We will start a banana bag, folic acid, thiamine. She can have a regular diet. I will place a consult to Social Work to help us with possible CARS placement. We will continue with supportive care. 2. Anxiety. Again, she is not on current medications. We will continue with supportive care. 3. DVT prophylaxis: We will order SCDs. 4. Code status: Full code. 5. Fluids, electrolytes, and nutrition: She can have a regular diet. TIME SPENT: Time spent on admission was 60 minutes, greater than half of the time was spent [id number] with the patient obtaining my history and physical, other half time was spent going over the plan of care with the patient and implementing plan of care. I did discuss the plan of care with my attending, Dr. Cedillo; he is in agreement. DONTA CAMPBELL NP [id number]/CPS #: [id number] MAKENZIE
[2018-07-19] MEDS: LORazepam TAB(*) 1 MG PO SCH ×7 (01:31→23:56)
[2018-07-19 06:25] LABS: Hematocrit 37 % (35-47); Mean Corpuscular HGB Conc 32 g/dl (31-36); Mean Corpuscular Hemoglobin 28 pg (27-31); Mean Corpuscular Volume 88 fL (80-97); Mean Platelet Volume 6.4 fL (7.4-10.4); Platelet Count 229 10^3/ul (150-450); Red Blood Count 4.23 10^6/ul (4.00-5.40); Red Cell Distribution Width 23 % (10.5-15); White Blood Count 4.3 10^3/ul (3.5-10.8)
[2018-07-19 06:38] LABS: EGFR Non-African American 98.5 (>60)
[2018-07-19 06:39] LABS: INR 0.95 (0.77-1.02)
[2018-07-19 07:11] LABS: ABS Basophils 0 10^3/ul (0-0.2); ABS Eosinophils 0.1 10^3/ul (0-0.6); ABS Lymphocytes 0.7 10^3/ul (1.0-4.8); ABS Monocytes 0.3 10^3/ul (0-0.8); ABS Neutrophils 3.2 10^3/ul (1.5-7.7); ABS Nucleated RBC 0 10^3/ul; Eosinophil % 1.8 % (0-6); Lymphocyte % 15.6 % (25-47); Nucleated Red Blood Cells % 0.2
[2018-07-19] MEDS: Folic Acid TAB* 1 MG PO SCH (08:04)
[2018-07-19] MEDS: Thiamine TAB* 100 MG TAB PO SCH (08:04)
[2018-07-19] MEDS: Multivitamins/Minerals TAB PO SCH (08:04)
--- NOTE | 2018-07-19 08:30 | PN ---
Subjective Date of Service: 07/19/18 Interval History: Patient states that she feels better but that she is very tired and anxious. She remains tachycardic with a HR 130-150s this afternoon. She denies other complaint including tremors, diaphoresis this afternoon. She has not had hallucinations. She continues to require ativan for withdrawal symptoms per nursing. Objective Active Medications: Acetaminophen (Tylenol Tab*) 650 mg PO Q4H PRN Folic Acid (Folvite Tab*) 1 mg PO DAILY [facility] Lorazepam (Ativan Tab(*)) 0 - 6 mg PO .PER [place] PROTOCOL [facility]; Protocol Multivitamins/Minerals (Theragran/Minerals Tab*) 1 tab PO DAILY [facility] Ondansetron HCl (Zofran Inj*) 4 mg IV Q6H PRN Thiamine HCl (Vitamin B-1 Tab*) 100 mg PO DAILY [facility] Vital Signs: Temp Pulse Resp BP Pulse Ox 98.0 F 122 17 140/98 97 07/19/18 07:50 07/19/18 07:50 07/19/18 08:04 07/19/18 07:50 07/19/18 07:50 Oxygen Devices in Use Now: None Appearance: Female sitting up in bed in NAD Eyes: No Scleral Icterus Ears/Nose/Mouth/Throat: Mucous Membranes Moist Neck: Trachea Midline Respiratory: Symmetrical Chest Expansion and Respiratory Effort, Clear to Auscultation Cardiovascular: NL Sounds; No Murmurs; No JVD, No Edema Abdominal: NL Sounds; No Tenderness; No Distention Extremities: No Edema Skin: No Rash or Ulcers Neurological: Alert and Oriented x 3, NL Muscle Strength and Tone Nutrition: Taking PO's Result Diagrams: 07/19/18 05:16 07/19/18 05:16 Additional Lab and Data: . Assess/Plan/Problems-Billing Assessment: Ms. Reveles is a 37 yo female with a PMH of alcoholism who was admitted on with alcohol withdrawal. - Patient Problems (1) Alcohol withdrawal Comment: - Has required ativan today, HR 120-150s. - Continue WAM protocol with ativan prn - Continue MVI, folate and thiamine. Start IVF for tachycardia/dehydration. (2) Depression Comment: - Continue Zoloft (3) HTN (hypertension) Comment: - BP reasonably controlled. - Does not appear to be taking BP meds outpatient. (4) DVT prophylaxis Comment: - ambulation Status and Disposition: Switch to inpatient with continued withdrawal symptoms requiring ativan and IVF. Anticipate discharge to home when medically stable. SW consult appreciated.
[2018-07-19] MEDS: NS 0.9% 1000 ML* 1,000 ML IV SCH ×2 (15:20→22:25)
--- NOTE | 2018-07-20 00:07 | PN ---
Hospitalist Progress Note Date of Service: 07/20/18 Called by RN about HTN given pt is in ETOH WD. Ordered PRN Metoprolol w/ holding orders for breakthrough HTN.
[2018-07-20] MEDS ORDERED: Metoprolol Tartrate IV* 1 MG/ML 5 ML VIAL ONE (00:10)
[2018-07-20] MEDS: Metoprolol Tartrate IV* 1 MG/ML 5 ML VIAL IV PRN ×4 (00:13→18:40)
[2018-07-20] MEDS: LORazepam TAB(*) 1 MG PO SCH ×8 (02:24→21:42)
[2018-07-20] MEDS: NS 0.9% 1000 ML* 1,000 ML IV SCH ×3 (04:25→19:34)
[2018-07-20] MEDS: Acetaminophen TAB* 325 MG PO PRN (08:03)
[2018-07-20] MEDS: Thiamine TAB* 100 MG TAB PO SCH (08:04)
[2018-07-20] MEDS: Multivitamins/Minerals TAB PO SCH (08:04)
[2018-07-20] MEDS: Folic Acid TAB* 1 MG PO SCH (08:04)
[2018-07-20] MEDS ORDERED: cloNIDine 0.2 MG PATCH* 0.2 MG/24 HR 7 DAY PATCH TRANSDERM SCH (09:00)
--- NOTE | 2018-07-20 15:15 | PN ---
Subjective Date of Service: 07/20/18 Interval History: Patient seen and examined. States she feels shaky but better than yesterday. Denies headache or blurred vision, no seizure activity noted. Tolerating meals, no n/v/d. Had pounding heart sensation earlier, currently resolved. When discussing her alcohol use, states she hides her drinking from loved ones and her is "at his wit's end" with her drinking. Stressed strong outpatient follow up. Objective Active Medications: Acetaminophen (Tylenol Tab*) 650 mg PO Q4H PRN PRN Reason: FEVER/PAIN Last Admin: 07/20/18 08:03 Dose: 650 mg Clonidine HCl (Bvquruli-Qae-7 0.2 Mg Patch*) 0.2 mg TRANSDERM Q7D [facility] Last Admin: 07/20/18 09:27 Dose: 0.2 mg Folic Acid (Folvite Tab*) 1 mg PO DAILY [facility] Last Admin: 07/20/18 08:04 Dose: 1 mg Sodium Chloride (Ns 0.9% 1000 Ml*) 1,000 mls @ 150 mls/hr IV PER RATE [facility] Last Admin: 07/20/18 12:31 Dose: 150 mls/hr Lorazepam (Ativan Tab(*)) 0 - 6 mg PO .PER [facility] PROTOCOL [facility]; Protocol Last Admin: 07/20/18 14:34 Dose: 3 mg Metoprolol Tartrate (Lopressor Iv*) 5 mg IV Q6H PRN PRN Reason: BLOOD PRESSURE Last Admin: 07/20/18 12:31 Dose: 5 mg Multivitamins/Minerals (Theragran/Minerals Tab*) 1 tab PO DAILY [facility] Last Admin: 07/20/18 08:04 Dose: 1 tab Ondansetron HCl (Zofran Inj*) 4 mg IV Q6H PRN PRN Reason: NAUSEA Last Admin: 07/19/18 08:05 Dose: 4 mg Thiamine HCl (Vitamin B-1 Tab*) 100 mg PO DAILY [facility] Last Admin: 07/20/18 08:04 Dose: 100 mg Vital Signs - 8 hr 07/20/18 07/20/18 07/20/18 07:52 07:53 08:00 Temperature 99.0 F Pulse Rate 105 Respiratory 16 16 Rate Blood Pressure 153/102 (mmHg) O2 Sat by Pulse 98 Oximetry 07/20/18 07/20/18 07/20/18 08:03 09:58 10:00 Temperature 98.5 F Pulse Rate 85 Respiratory 16 23 14 Rate Blood Pressure 161/101 (mmHg) O2 Sat by Pulse 99 Oximetry 07/20/18 07/20/18 07/20/18 10:33 10:34 12:00 Temperature Pulse Rate Respiratory 14 14 14 Rate Blood Pressure (mmHg) O2 Sat by Pulse Oximetry 07/20/18 07/20/18 07/20/18 12:20 12:31 14:00 Temperature Pulse Rate 104 Respiratory 14 14 Rate Blood Pressure 167/109 (mmHg) O2 Sat by Pulse 100 Oximetry 07/20/18 14:34 Temperature Pulse Rate Respiratory 14 Rate Blood Pressure (mmHg) O2 Sat by Pulse Oximetry Oxygen Devices in Use Now: None Appearance: alert, NAD Eyes: No Scleral Icterus, PERRLA Ears/Nose/Mouth/Throat: NL Teeth, Lips, Gums, Mucous Membranes Moist Neck: NL Appearance and Movements; NL JVP, Trachea Midline Respiratory: Symmetrical Chest Expansion and Respiratory Effort, Clear to Auscultation Cardiovascular: NL Sounds; No Murmurs; No JVD, - - tachycardic, bounding pulse Extremities: No Edema, No Clubbing, Cyanosis Skin: No Rash or Ulcers Neurological: Alert and Oriented x 3, NL Sensation, NL Gait Nutrition: Taking PO's Result Diagrams: 07/19/18 05:16 07/19/18 05:16 Additional Lab and Data: . Assess/Plan/Problems-Billing Assessment: Ms. Reveles is a 37 yo female with a PMH of alcoholism who was admitted on with alcohol withdrawal. - Patient Problems (1) Alcohol withdrawal Code(s): F10.239 - ALCOHOL DEPENDENCE WITH WITHDRAWAL, UNSPECIFIED SNOMED Code (s): 507714107 Comment: - Exhibiting hemodynamic instability overnight with HR 140s with accelerated hypertension - Continue WAM protocol with ativan prn, scoring >8 - Continue MVI, folate and thiamine - Continue IVF - SW consulted, outpatient resource list provided, stressed complete abstinence post discharge (2) Tachycardia Code(s): R00.0 - TACHYCARDIA, UNSPECIFIED SNOMED Code(s): 5545612 Comment: - 2/2 dehydration and withdrawal - BB added Q6h PRN (3) Depression Code(s): F32.9 - MAJOR DEPRESSIVE DISORDER, SINGLE EPISODE, UNSPECIFIED SNOMED Code(s): 41611046 Comment: - Continue Zoloft, recommend outpatient therapy for alcohol abuse and concurrent depression (4) HTN (hypertension) Code(s): I10 - ESSENTIAL (PRIMARY) HYPERTENSION SNOMED Code(s): 67737394 Comment: - Hypertensive urgency last 24 hours - BB added overnight - Trial clonidine patch while detoxing and monitor closely (5) DVT prophylaxis Code(s): QSV1515 - SNOMED Code(s): 429009333 Comment: - ambulatory, low risk Status and Disposition: Impatient with withdrawal symptoms requiring ativan and IVF and BP control. Anticipate DC home with outpatient follow up when medically stable.
[2018-07-21] MEDS: Metoprolol Tartrate IV* 1 MG/ML 5 ML VIAL IV PRN ×4 (00:17→20:33)
[2018-07-21] MEDS: LORazepam TAB(*) 1 MG PO SCH (00:17)
[2018-07-21] MEDS: NS 0.9% 1000 ML* 1,000 ML IV SCH ×2 (02:01→08:24)
[2018-07-21] MEDS: Thiamine TAB* 100 MG TAB PO SCH (08:19)
[2018-07-21] MEDS: Folic Acid TAB* 1 MG PO SCH (08:19)
[2018-07-21] MEDS: Multivitamins/Minerals TAB PO SCH (08:19)
[2018-07-21] MEDS ORDERED: Magnesium Sulfate 1 GM IV* 1 GM/100 ML BAG IV ONE (08:47)
[2018-07-21] MEDS ORDERED: cloNIDine 0.3 MG PATCH* 0.3 MG/24 HR 7 DAY PATCH TRANSDERM SCH (09:00)
[2018-07-21] MEDS: Acetaminophen TAB* 325 MG PO PRN ×2 (14:18→20:32)
--- NOTE | 2018-07-21 16:47 | PN ---
Subjective Date of Service: 07/21/18 Interval History: Patient seen and examined, states less tremulous today, had a headache earlier that responded well to tylenol. No further complaints. Objective Active Medications: Acetaminophen (Tylenol Tab*) 650 mg PO Q4H PRN PRN Reason: FEVER/PAIN Last Admin: 07/21/18 14:18 Dose: 650 mg Clonidine HCl (Fjqxxfbc-Aqf-4 0.3 Mg Patch*) 0.3 mg TRANSDERM Q7D [facility] Last Admin: 07/21/18 09:54 Dose: 0.3 mg Folic Acid (Folvite Tab*) 1 mg PO DAILY [facility] Last Admin: 07/21/18 08:19 Dose: 1 mg Lorazepam (Ativan Tab(*)) 0 - 6 mg PO .PER [facility] PROTOCOL [facility]; Protocol Metoprolol Tartrate (Lopressor Iv*) 5 mg IV Q6H PRN PRN Reason: BLOOD PRESSURE Last Admin: 07/21/18 14:19 Dose: 5 mg Multivitamins/Minerals (Theragran/Minerals Tab*) 1 tab PO DAILY [facility] Last Admin: 07/21/18 08:19 Dose: 1 tab Ondansetron HCl (Zofran Inj*) 4 mg IV Q6H PRN PRN Reason: NAUSEA Last Admin: 07/19/18 08:05 Dose: 4 mg Thiamine HCl (Vitamin B-1 Tab*) 100 mg PO DAILY [facility] Last Admin: 07/21/18 08:19 Dose: 100 mg Vital Signs - 8 hr 07/21/18 07/21/18 07/21/18 10:16 10:21 11:50 Temperature 98.5 F 99.2 F Pulse Rate 107 109 Respiratory 14 19 16 Rate Blood Pressure 161/117 150/99 (mmHg) O2 Sat by Pulse 98 99 Oximetry 07/21/18 07/21/18 07/21/18 14:05 15:19 16:22 Temperature 100.0 F 98.0 F 99.7 F Pulse Rate 119 103 109 Respiratory 16 18 22 Rate Blood Pressure 156/116 149/95 156/114 (mmHg) O2 Sat by Pulse 98 98 98 Oximetry Oxygen Devices in Use Now: None Appearance: alert, NAD Ears/Nose/Mouth/Throat: NL Teeth, Lips, Gums, Mucous Membranes Moist Neck: NL Appearance and Movements; NL JVP, Trachea Midline Respiratory: Symmetrical Chest Expansion and Respiratory Effort, Clear to Auscultation Cardiovascular: NL Sounds; No Murmurs; No JVD, RRR, No Edema Abdominal: NL Sounds; No Tenderness; No Distention, No Hepatosplenomegaly Extremities: No Edema, No Clubbing, Cyanosis Neurological: Alert and Oriented x 3, NL Sensation, NL Gait Nutrition: Taking PO's Result Diagrams: 07/19/18 05:16 07/19/18 05:16 Additional Lab and Data: . Assess/Plan/Problems-Billing Assessment: Ms. Reveles is a 37 yo female with a PMH of alcoholism who was admitted on with alcohol withdrawal. - Patient Problems (1) Alcohol withdrawal Code(s): F10.239 - ALCOHOL DEPENDENCE WITH WITHDRAWAL, UNSPECIFIED SNOMED Code (s): 608657055 Comment: - Exhibiting hemodynamic instability overnight with HR 140s with accelerated hypertension - Continue WAM protocol, adjusted dosing 2/2 hypertension and tachycardia today - Continue MVI, folate and thiamine - Will stop IVF, has adequal oral intake - SW consulted, outpatient resource list provided, stressed complete abstinence post discharge (2) Tachycardia Code(s): R00.0 - TACHYCARDIA, UNSPECIFIED SNOMED Code(s): 7453944 Comment: - 2/2 dehydration and withdrawal - BB added Q6h PRN (3) Depression Code(s): F32.9 - MAJOR DEPRESSIVE DISORDER, SINGLE EPISODE, UNSPECIFIED SNOMED Code(s): 42979524 Comment: - Continue Zoloft, recommend outpatient therapy for alcohol abuse and concurrent depression (4) HTN (hypertension) Code(s): I10 - ESSENTIAL (PRIMARY) HYPERTENSION SNOMED Code(s): 92472925 Comment: - Hypertensive urgency last 48 hours - BB Q6h PRN - Continue clonidine patch with benzodiazepines - Will likley need BB at discharge to prevent recbound, unclear if this is also a component of underlying HTN? (5) DVT prophylaxis Code(s): [id number] - SNOMED Code(s): 404024234 Comment: - ambulatory, low risk Status and Disposition: Impatient with withdrawal symptoms requiring ativan and BP control. Anticipate DC home with outpatient follow up when medically stable.
[2018-07-22] MEDS: LORazepam TAB(*) 1 MG PO SCH ×2 (04:36→06:23)
[2018-07-22] MEDS: Metoprolol Tartrate IV* 1 MG/ML 5 ML VIAL IV PRN (04:36)
[2018-07-22 08:10] VITALS: BP 155/94
[2018-07-22] MEDS: Thiamine TAB* 100 MG TAB PO SCH (08:46)
[2018-07-22] MEDS: Multivitamins/Minerals TAB PO SCH (08:46)
[2018-07-22] MEDS: Folic Acid TAB* 1 MG PO SCH (08:46)
--- NOTE | 2018-07-23 11:57 | DS ---
CC: Dr. Bernard * DISCHARGE SUMMARY: DATE OF ADMISSION: 07/18/18 DATE OF DISCHARGE: 07/22/18 PRIMARY CARE PROVIDER: Dr. Bernard. ATTENDING PHYSICIAN FOR THIS ADMISSION: Dr. Vasquez. MY ATTENDING PHYSICIAN FOR TODAY: Dr. Trish Bradshaw * (dictated by Chris Roth NP). HOSPITAL COURSE: This is a 37-year-old female with a history of chronic alcohol abuse. She has had multiple times where she has undergone detox with severe symptoms. The patient presented with an alcohol level of 505 to the emergency department on the evening on 07/18/18 seeking detox assistance. The patient was placed on WAM protocol. Her scores were initially only between 3 and 4; however, she did have an uptake in her scores requiring Ativan, she was between 6 and 9. She also remained tachycardic and hypertensive. For tachycardia, which is primarily with ambulation and also for blood pressure control, she was placed on the clonidine patch with Lopressor 5 mg IV q.6 hours , for which she was needing for the last 48 hours. The patient's heart rate came down to between 90 and 100 and blood pressure, her diastolic numbers came down to the high 90s, which was a great improvement. The patient wished to go home today to be home with her son. Her WAM scores were in the 3 range this morning and did not require Ativan at this time. I discussed at length with her her hypertension. It is unclear to us whether she has undiagnosed hypertension that has not been treated and because she had been on beta- blockers for the duration of her stay, we did not want to abruptly stop her beta - cesar and then have her rebound hypertension. She was sent home with prescription for metoprolol extended release to ensure that she has blood pressure control over this week. DISCHARGE DIAGNOSES: 1. Alcohol abuse undergoing detox. 2. Hypertensive urgency. 3. Tachycardia unrelated to diagnosis #1. 4. Transaminitis, likely secondary to alcohol abuse. DISCHARGE MEDICATIONS: Include: 1. Thiamine 100 mg p.o. daily. 2. Multivitamin 1 tab p.o. daily. 3. Metoprolol succinate XL 25 mg p.o. daily. 4. Folic acid 1 mg p.o. daily. REVIEW OF SYSTEMS: The patient denies any fever, fatigue, or chills. No headache, no shortness of breath, no chest pain. No abdominal pain. No nausea , no vomiting. No dizziness or blurriness. No further constitutional complaints. PHYSICAL EXAM: Reveals a well-appearing female, in no acute distress. Vital Signs: Blood pressure 155/94, heart rate 103, respiratory rate 16, O2 saturation 98% on room air with a temperature of 98.8. HEENT: The patient is atraumatic, normocephalic. PERRLA with nonicteric sclerae. Oral mucosa is moist. Neck is supple, nontender. No JVD noted, no carotid bruit auscultated. Cardiovascular: S1, S2 present. No murmurs, gallops, or rubs. Rate is mildly tachycardiac, rhythm is regular. Lungs are clear bilaterally to auscultation with no wheezing, rhonchi, or rales. Abdomen is soft, nontender, nondistended. Positive bowel sounds in all 4 quadrants. is deferred. Musculoskeletal: There is no clubbing, no cyanosis. No tremors. She has gross motor and sensation intact. Steady gait. Neurologic: Grossly intact with no focal deficit. Psychiatric: She is cooperative and appropriate. LABORATORY DATA: WBC is 4.3, RBC is 4.23, hemoglobin 12.0, hematocrit 37, platelets 229. Sodium 141, potassium 3.7, chloride 105, BUN 5, creatinine 0.67 , GFR 98.5, glucose 85, calcium 8.3. AST 96, ALT 53, alk phos 64. TSH 0.50. Albumin 4.2. Globulin 2.6. DISPOSITION: The patient was discharged to home in stable condition. All questions were answered. The patient stated her understanding of her discharge instructions and medications. FOLLOW-UP: The patient was instructed to follow up with Dr. Bernard, her primary care provider, to have her blood pressure checked this week and determine the need for any additional blood pressure medication management as an outpatient. She was also instructed to follow up with [facility] for her alcohol dependence. The patient did reach out to make a phone call today for an intake and stated she would try to enter a program. She was instructed very strongly to abstain from alcohol use as her young age and young son at home would benefit greatly from her becoming sober. DIET: She should have a regular diet as tolerated, take her supplements as ordered. TIME SPENT: >35 minutes on counseling and discharge planning. CHRIS ROTH, ADIEL [id number]/[facility] #: [id number] [facility] HOSPITALReji
== END 2018-07-22 13:10 | disposition home or self-care (01) | DRG 775 ==
LOC: ED 13:18 → MED 18:02 → OBSVTOIN 07-19 15:10
PROVIDERS: ADMIT Internal Medicine; ATTEND Internal Medicine
DX: F10.239 Alcohol dependence with withdrawal, unspecified (principal); F10.229 Alcohol dependence with intoxication, unspecified; Y90.8 Blood alcohol level of 240 mg/100 ml or more; I16.0 Hypertensive urgency; F32.9 Major depressive disorder, single episode, unspecified; R00.0 Tachycardia, unspecified; R74.0 Nonspecific elevation of levels of transaminase and lactic acid dehydrogenase [LDH]; E86.0 Dehydration; F41.9 Anxiety disorder, unspecified; Z80.7 Family history of other malignant neoplasms of lymphoid, hematopoietic and related tissues; Z84.89 Family history of other specified conditions
CPT/HCPCS: 36415; 80048; 80053; 80076; 80320; 80329; 84443; 84702; 85025; 85060; 85610; 99284; A9270-GY; G0378; G0480; J2405; J3411; J3475; J3490

== ENCOUNTER 2018-12-25 19:52 | Emergency (ER) | payer SELFPAY ==
--- NOTE | 2018-12-25 20:12 | ED ---
Substance Abuse/Use - HPI Summary HPI Summary: This patient is a 38 year old female brought in by ambulance to [facility] with a chief complaint of syncopal episode and EtOH abuse. Patient was found unresponsive in her car by the police. Patient stopped at a stoplight and when it turned green, patient did not start moving. EMS states that patient ambulated unsteadily out of her car upon EMS arrival and smelled of EtOH. Patient admits to drinking, but denies other drugs. Patient is tearful and states that she is a regular drinker. Patient attempted to drive home before passing out. Patient is tearful in ED. Symptoms aggravated by nothing. Symptoms alleviated by nothing. Patient additionally presents with an abrasion and bruise to her left eye that she states she received in an accident at work. - History Of Current Complaint Chief Complaint: EDSubstanceAbuse Stated Complaint: ETOH PER EMS Time Seen by Provider: 12/25/18 19:59 Hx Obtained From: Patient Hx Last Menstrual Period: now Ingestion History: Type/Name Of Drug - EtOH Timing Of Abuse: Binge Use Severity Currently: Moderate Character: Other - tearful Aggravating Factor(s): Nothing Alleviating Factor(s): Nothing Associated Signs And Symptoms: Other: - abrasion and bruise to left eye - Allergies/Home Medications Allergies/Adverse Reactions: Allergies Allergy/AdvReac Type Severity Reaction Status Date / Time No Known Allergies Allergy Verified 12/06/17 17:59 PMH/Surg Hx/FS Hx/Imm Hx Previously Healthy: No Endocrine/Hematology History: Denies: Hx Blood Disorders, Hx Blood Transfusions, Hx Bone Marrow Disease Respiratory History: Denies: Hx Asthma, Hx Bronchopulmonary Dysplasia, Hx Chronic Bronchitis History: Denies: Hx Acute Renal Failure, Hx Benign Prostatic Hyperplasia Sensory History: Denies: Hx Contacts or Glasses, Hx Deafness, Hx Hearing Aid Opthamlomology History: Denies: Hx Contacts or Glasses Neurological History: Denies: Hx CVA Psychiatric History: Reports: Hx Anxiety - Cancer History Cancer Type, Location and Year: None reported - Surgical History Surgery Procedure, Year, and Place: None reported Infectious Disease History: No Infectious Disease History: Denies: Traveled Outside the [place] in Last 30 Days - Family History Known Family History: Positive: Other - AAA killed her mother at 34 y/o; father of [place] Negative: Cardiac Disease, Hypertension, Diabetes, Renal Disease, Respiratory Disease, Seizure Disorder - Social History Lives: With Family Alcohol Use: Daily Alcohol Amount: 10 drinks daily (airplane bottle size) Hx Substance Use: No Substance Use Type: Reports: None Hx Tobacco Use: Yes Type: Cigarettes Have You Smoked in the Last Year: Yes Review of Systems Negative: Fever Positive: Syncope Positive: Other - EtOH intoxication All Other Systems Reviewed And Are Negative: Yes Physical Exam - Summary Physical Exam Summary: Appearance: Appears intoxicated, tearful Skin: Warm, dry, no obvious rash Eyes: sclera anicteric, no conjunctival pallor ENT: mucous membranes moist Neck: deferred Respiratory: No signs of respiratory distress Cardiovascular: Appears well perfused, pulses are nml Abdomen: deferred Musculoskeletal: Moving all 4 extremities without obvious discomfort Triage Information Reviewed: Yes Vital Signs On Initial Exam: Initial Vitals Temp Pulse Resp BP Pulse Ox 98.1 F 103 16 147/109 99 12/25/18 19:56 12/25/18 19:56 12/25/18 19:56 12/25/18 19:56 12/25/18 19:56 Vital Signs Reviewed: Yes Diagnostics - Vital Signs Vital Signs Temp Pulse Resp BP Pulse Ox 12/25/18 19:56 98.1 F 103 16 147/109 99 - Laboratory Lab Statement: Any lab studies that have been ordered have been reviewed, and results considered in the medical decision making process. Course/Dx - Course Course Of Treatment: This patient is a 38 year old female brought in by ambulance to [facility] with a chief complaint of syncopal episode and EtOH abuse. Patient was found unresponsive in her car by the police. Patient stopped at a stoplight and when it turned green, patient did not start moving. EMS states that patient ambulated unsteadily out of her car upon EMS arrival and smelled of EtOH. Patient admits to drinking, but denies other drugs. Patient is tearful and states that she is a regular drinker. Patient will be discharged with a dx of alcohol intoxication. Patient is agreeable to this plan. - Diagnoses Provider Diagnoses: Alcohol intoxication Discharge - Sign-Out/Discharge Documenting (check all that apply): Patient Departure Patient Received Moderate/Deep Sedation with Procedure: No - Discharge Plan Condition: Stable Disposition: HOME Patient Education Materials: Alcohol Intoxication (ED), Abuse of Alcohol (ED) Referrals: [facility] [Outside] [facility] [Outside] Naina Bernard MD [Primary Care Provider] - - Billing Disposition and Condition Condition: STABLE Disposition: Home - Attestation Statements Document Initiated by Shannen: Yes Documenting Scribe: Leeann Cervantes Provider For Whom Shannen is Documenting (Include Credential): MD Shannen Schwartz Attestation: Leeann Gayle, scribed for Ke Sabillon MD on 12/26/18 at 0606. Scribe Documentation Reviewed: Yes Provider Attestation: The documentation as recorded by the Leeann paiz accurately reflects the service I personally performed and the decisions made by me, Ke Sabillon MD Status of Scrjuniore Document: Viewed
[2018-12-26 05:07] VITALS: BP 131/85
== END 2018-12-26 05:32 | disposition home or self-care (01) ==
LOC: ED 19:52
DX: F10.129 Alcohol abuse with intoxication, unspecified (principal); R55 Syncope and collapse; F41.9 Anxiety disorder, unspecified; F17.210 Nicotine dependence, cigarettes, uncomplicated
CPT/HCPCS: 99282